=== PATIENT | male | born 1960 | race Caucasian/White ===

== ENCOUNTER → 2020-10-11 12:19 | Outpatient (CLI) | payer MEDICARE, SELFPAY ==
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
== END ==
DX: M19.011 Primary osteoarthritis, right shoulder (principal); M75.101 Unspecified rotator cuff tear or rupture of right shoulder, not specified as traumatic; G89.29 Other chronic pain
CPT/HCPCS: 73221

== ENCOUNTER 2021-03-14 11:03 | Emergency (ER) | payer MEDICARE, SELFPAY ==
[2021-03-14 11:04] VITALS: BP 164/91; PULSE 96; RESP 16; TEMP 36.6; BMI 22.8
[2021-03-14 13:46] VITALS: BP 140/87; PULSE 87; RESP 16; O2SAT 99
[2021-03-14] MEDS: Ondansetron ODT 4 MG Tablet PO (13:59)
[2021-03-14] MEDS: morphine 10 MG/ML Syringe 6 MG IM (13:59)
--- NOTE | 2021-03-14 15:05 | EDS_ITS ---
HPI History of Present Illness Chief Complaint: Cellulitis Narrative Narrative: 60-year-old male presenting with cellulitis on the left proximal forearm dorsal surface. He states this is been here for 3 months. He initially saw his primary care physician who is at [facility]. He states he was seen by resident initially and told it was fungal. He has been given topical antifungals for this since not improving. He denies any systemic signs or symptoms. He states he had a similar thing on the right elbow distantly and this resolved without any intervention. Patient states he has been able to express some pus from the lateral aspect of the proximal forearm. Denies his tory of MRSA. [facility] Medical History Diabetes Home Medications clindamycin HCl 450 mg PO TID 10 Days #90 cap 03/14/21 [Rx Last Taken Unknown] diclofenac sodium 75 mg PO BID 03/14/21 [History Last Taken Unknown] gabapentin 800 mg PO BID 03/14/21 [History Last Taken Unknown] metformin 1,000 mg PO BID 03/14/21 [History Last Taken Unknown] oxycodone-acetaminophen [Percocet] 1 tab PO Q6H PRN 3 Days tab 03/14/21 [Rx Last Taken Unknown] Allergy/AdvReac Type Severity Reaction Status Date / Time No Known Allergies Allergy Verified 03/14/21 11:07 Surgical History History of back surgery Social History Smoking Status: Light Smoker (<10/day) ROS [facility] ED Constitutional Constitutional ED: Denies chills or fever(s) Eyes Eyes: Denies blurry vision or change in vision ENT ENT ED: Denies rhinorrhea or sore throat Cardiovascular Cardiovascular: Denies chest pain or palpitations Respiratory/Chest Respiratory/Chest: Denies cough or dyspnea Gastrointestinal Gastrointestinal: Denies abdominal pain or nausea Genitourinary Genitourinary ED: Denies dysuria, hematuria or urinary frequency Musculoskeletal Musculoskeletal: Denies arthralgias or myalgias Integumentary Reports abscess and rash Neurologic Neurologic: Denies headache(s) or paresthesias EXAM Physical Exam Const Vital Signs: 03/14/21 11:04 03/14/21 13:46 Temperature 97.9 F Temperature Source Temporal Pulse Rate 96 87 Respiratory Rate 16 16 Blood Pressure 164/91 H 140/87 H Blood Pressure Mean 115 104 Pulse Ox 99 Positive well nourished General Appearance ED: NAD HEENT Reports moist mucous membranes Negative for trauma Eyes PERRL and EOMs intact bilaterally Resp normal respiratory effort and clear to auscultation bilaterally Cardio regular rate Extremity Extremity Narrative: Left proximal forearm has a 2 x 2 centimeter area of fluctuance with surrounding erythema proximally and medially. There is also induration here. No crepitance. Neuro oriented x3 Sensorium / Orientation: alert Psych mental status grossly normal MDM MDM MDM Narrative Medical decision making narrative: Patient presenting with abscess on the left proximal forearm. There is a 2 x 2 centimeter area of fluctuance. Patient is concerned that the abscess spans across the proximal dorsal forearm medially. When examining him he is pushing on the medial aspect of the forearm and pushing all the way until it starts to express when he gets to the area of fluctuance. Patient's wound was anesthetized with 6 cc of lidocaine with epinephrine to excise the whole volar area of the proximal forearm after the wound was cleaned with Shur-Clens. Incision and drainage was making a linear vertical fashion over the lateral aspect of the proximal forearm and this was deloculated and purulent discharge was drained. Patient is insistent that there is a tract from the medial aspect and for this reason I did 2 similar vertical incisions along this area concerning for tract in the forearm and there is no purulent discharge from these areas. Patient is counseled on soaking the forearm as well as being started on antibiotics for infection. He is counseled for new or worsening symptoms to return to the ED. Patient stable for discharge at this time. Impression: 1. Abscess 2. Cellulitis Discharge Plan Triage Chief Complaint: Cellulitis Other Complaint: Upper Extremity Injury ED Provider: Rickie Garcia Dx/Rx/DC Orders Clinical Impression: Abscess Prescriptions: New clindamycin HCl 150 mg capsule 450 mg PO TID 10 Days Qty: 90 RF: 0 oxycodone-acetaminophen [Percocet] 5-325 mg tablet 1 tab PO Q6H PRN (Reason: pain) 3 Days RF: 0 No Action gabapentin 800 mg Tablet 800 mg PO BID RF: 0 metformin 1,000 mg Tablet 1,000 mg PO BID RF: 0 diclofenac sodium 75 mg tablet,delayed release (DR/EC) 75 mg PO BID RF: 0 Primary Care Provider: Care Physician,No Primary Referrals: Care Physician,No Primary [Primary Care Provider] - Disposition Disposition: Home, Self Care
[2021-03-14] MEDS: oxyCODONE 5 MG Tablet PO (15:06)
[2021-03-14] MEDS: Clindamycin HCl 150 MG Capsule 450 MG PO (15:06)
[2021-03-14 15:19] VITALS: PULSE 86; RESP 16; O2SAT 97
[2021-03-14] MEDS: Lidocaine 1% /Epi 1:100 (20ml) 20 ML Vial INFILT (15:20)
== END 2021-03-14 15:21 | disposition home or self-care (01) ==
PROVIDERS: Emergency Provider Student in an Organized Health Care Education/Training Program
DX: L02.414 Cutaneous abscess of left upper limb (principal); L03.114 Cellulitis of left upper limb; F17.200 Nicotine dependence, unspecified, uncomplicated; E11.9 Type 2 diabetes mellitus without complications; Z79.84 Long term (current) use of oral hypoglycemic drugs; Z79.899 Other long term (current) drug therapy
CPT/HCPCS: 96372; 99284

== ENCOUNTER 2021-07-11 09:19 | Outpatient (CLI) | payer MEDICARE, SELFPAY ==
--- NOTE | 2021-07-11 09:30 | RAD_ITS ---
STUDY: X-RAY - ESOPHAGUS (BARIUM SWALLOW) WITH FLUOROSCOPY REASON FOR EXAM: Male, 61 years old. WEIGHT LOSS TECHNIQUE: 32 view(s) of the esophagus were obtained following swallowing of barium. FLUOROSCOPY TIME (if supplied): (36 seconds) minutes/seconds COMPARISON: None. FINDINGS: There is no demonstrated esophageal foreign body. There is no demonstrated stricture or mucosal abnormality. There is circumferential narrowing of the distal esophagus at the level of the gastroesophageal junction. The patient ingested a 12 mm tablet of barium. There is transient holdup of the tablet at that site although it eventually crosses over the gastroesophageal junction. Normal visualized aortic arch and descending thoracic aorta. Normal visualized pulmonary parenchyma. Normal visualized osseous structures of the thorax. RAD/Esophagus Single Contrast IMPRESSION: Diffuse circumferential narrowing of the distal portion of the esophagus at the gastroesophageal junction. There is transitory trapping of the 12 mm tablet of barium at the GE junction. Electronically Signed: Robbie Ortiz MD at 9:54 EST ,
== END 2021-07-11 23:59 | disposition short-term general hospital (02) ==
PROVIDERS: Referring Provider Internal Medicine Gastroenterology; Visit Provider Internal Medicine Gastroenterology
DX: R13.10 Dysphagia, unspecified (principal); R63.4 Abnormal weight loss
CPT/HCPCS: 74220

== ENCOUNTER 2021-08-11 12:03 | Outpatient (CLI) | payer MEDICARE, SELFPAY | END 2021-08-11 23:59 | disposition home or self-care (01) | LOC: PSN 12:04 | PROVIDERS: Referring Provider Internal Medicine Gastroenterology; Visit Provider Internal Medicine Gastroenterology | DX: Z20.822 Contact with and (suspected) exposure to COVID-19 (principal) | CPT/HCPCS: 87426; C9803 ==

== ENCOUNTER 2021-08-23 21:05 | Observation (INO) | payer MEDICARE, SELFPAY ==
[2021-08-23 21:05] VITALS: BP 155/106; PULSE 92; RESP 16; TEMP 36.1; O2SAT 98; BMI 25.7
--- NOTE | 2021-08-23 21:26 | EKG12_ITS ---
Test Reason : EDEMA Blood Pressure : / mmHG Vent. Rate : 087 BPM Atrial Rate : 087 BPM P-R Int : 166 ms QRS Dur : 146 ms QT Int : 394 ms P-R-T Axes : 063 -59 109 degrees QTc Int : 474 ms Normal sinus rhythm Left axis deviation Left bundle branch block Abnormal ECG Confirmed by TEDDY HENRY, ERICA ([id number]), society editor RACHELLE PADILLA ([id number]) on 08/25/2021 11:07:06 AM Referred By: Lidia Collins Confirmed By:ERICA ESPINAL MD
--- NOTE | 2021-08-23 21:40 | RAD_ITS ---
HISTORY: sob EXAMINATION/TECHNIQUE: XR Chest 2 Views: COMPARISON: None FINDINGS: LINES/DEVICES: None. LUNGS: No airspace consolidation. Unremarkable interstitium. No effusion. No pneumothorax. MEDIASTINUM: Mild cardiomegaly. Aortic atherosclersosis. MUSCULOSKELETAL: No acute osseous finding. RAD/Chest PA and Lateral IMPRESSION: No evidence of acute cardiopulmonary process. Borderline cardiomegaly without florid pulmonary edema. at 2204 Reported and signed by: Fabiano Portillo MD Electronically Signed: Fabiano Portillo MD at 22:02 EST ,
[2021-08-23 21:46] LABS: Absolute Lymphocyte Count 2.42 X10^3/uL (0.83-4.51); Absolute Neutrophil Count 4.4 X10^3/uL (2.0-7.7); Basophil# 0.02 X10^3/uL; Basophil% 0.3 % (0-1); Eosinophil# 0.09 X10^3/uL; Eosinophils% 1.2 % (0-5); Hemoglobin 16.1 g/dL (13.0-16.5); Lymphocyte # 2.42 X10^3/ul (0.83-4.51); Mean Corp Hgb Conc 34.3 g/dL (32-36); Mean Corpuscular Hgb 30.3 pg (27.0-32.0); Mean Corpuscular Volume 88.5 fL (80-94); Mean Platelet Vol. 10.6 fl (6.2-12.0); Monocyte% 7.9 % (0-10); NRBC Flagged by Analyzer 0 % (0-5); Neutrophil # 4.41 X10^3/uL (2.7-7.7); Neutrophil % 58.3 % (47-70); Platelet Count 160 K/mm3 (150-450); RBC Distribution Width CV 15.4 % (11.6-14.6); RBC Distribution Width SD 49.9 fl (35.1-43.9); Red Blood Count 5.31 M/mm3 (4.6-6.2); White Blood Count 7.6 K/mm3 (4.4-11.0)
--- NOTE | 2021-08-23 22:04 | EX.ED.DYSGE1 ---
HPI History of Present Illness Chief Complaint: Edema Informant: patient Onset/Context/Timing Onset: Weeks (1) Context: Gradual Onset Timing: Continuous Quality: swelling Location: BLE Current Severity: Mild Maximum Severity: Mild Worsened by: unk Relieved by: nothing Associated Symptoms Associated Symptoms: orthopnea Narrative Narrative: Patient has had swelling in both of his legs symmetrically without any pain and orthopnea for the past week. He states it has been since he had an EGD. He states that during the procedure she had some type of reaction to the anesthesia that they told him about when he woke up and were asking if he had had reaction to anesthesia in the past and he told him no. He is not sure about the details but he knows they had to put him on some oxygen. He was not sent home on it. He has had no chest discomfort or dyspnea with exertion. He has a mild chronic cough that he states is no worse than usual and nonproductive. No fevers or chills. No arm, jaw, neck discomfort that is unexplained. PFSH PFSH Medical History Diabetes Tobacco use Home Medications diclofenac sodium 75 mg PO BID 03/14/21 [History Last Taken Unknown] gabapentin 800 mg PO BID 03/14/21 [History Last Taken Unknown] metformin 1,000 mg PO BID 03/14/21 [History Last Taken Unknown] Allergy/AdvReac Type Severity Reaction Status Date / Time No Known Allergies Allergy Verified 08/23/21 21:06 Surgical History History of back surgery Social History Smoking Status: Light Smoker (<10/day) ROS ROS ED Constitutional Constitutional ED: Denies chills or fever(s) Eyes Eyes: Denies change in vision or diplopia ENT ENT ED: Denies rhinorrhea or sore throat Cardiovascular Cardiovascular: Reports orthopnea and pedal edema; Denies chest pain or palpitations Respiratory/Chest Respiratory/Chest: Reports cough and orthopnea; Denies dyspnea or excessive phlegm production Gastrointestinal Gastrointestinal: Denies abdominal pain, diarrhea, nausea or vomiting Genitourinary Genitourinary ED: Denies dysuria or hematuria Musculoskeletal Musculoskeletal: Denies back pain or neck pain Integumentary Denies abscess or rash Neurologic Neurologic: Denies headache(s), paresthesias or weakness Psychiatric Psychiatric: Denies anxiety or suicidal thoughts EXAM Physical Exam Const Vital Signs: 08/23/21 21:05 08/23/21 22:36 Temperature 97 F L 98.0 F Temperature Source Temporal Temporal Pulse Rate 92 83 Respiratory Rate 16 20 H Blood Pressure 155/106 H 152/99 H Blood Pressure Mean 122 116 Pulse Ox 98 96 Oxygen Delivery Method Room Air Room Air Positive well nourished and well developed General Appearance ED: well developed and NAD HEENT Reports moist mucous membranes normocephalic and atraumatic Eyes PERRL and EOMs intact bilaterally Neck full ROM, no lymphadenopathy, supple, no meningeal signs and thyroid normal Resp normal respiratory effort Resp Narrative: Few basilar rhonchi and wheezes bilaterally, no distress. Effort and Inspection: able to speak in complete sentences Cardio regular rate, regular rhythm and no murmurs GI non-tender and non-distended Auscultation: normoactive bowel sounds Palpation: soft Back/Spine no CVA tenderness General Back: other FROM Extremity normal to inspection Extremity Narrative: Patient states he is swollen compared with a normal up to the knees bilaterally, objectively I cannot appreciate any significant edema. None of it is pitting. Her compartments soft nondistended. Negative Homans bilaterally. Strong 2+/4 dorsalis pedis and radial pulses bilaterally and symmetric. General Extremety ED: Negative for edema, pulses abnormal or tenderness General Extremity: Negative for edema or pulses abnormal Neuro oriented x3, CN's II-XII intact bilaterally and no sensory deficits noted Sensorium / Orientation: awake and alert Motor Exam: strength 5/5 throughout Skin no rashes or lesions noted and no wounds MDM MDM MDM Narrative Medical decision making narrative: Patient's EKG shows a left bundle branch block. There is no old for comparison. There is no acute injury pattern and he is currently having no chest discomfort/angina. 2 view chest x-ray on my interpretation shows cardiomegaly and mild congestion. Radiology in agreement, stating no florid pulmonary edema. His BNP is elevated as well. The rest of his labs are unremarkable. He is clinically hemodynamically stable without hypoxemia. Therefore I spoke with Dr. Maxwell with cardiology. He advises admitting the patient for work-up even though the echocardiogram will happen the day after tomorrow since tomorrow is Wednesday, which I discussed with the patient and his , and he is agreeable to stay. Lab Data Attestation: I reviewed the patient's lab results. Labs: Laboratory Results - last 24 hr 08/23/21 08/23/21 08/23/21 21:40 21:40 21:40 WBC 7.6 RBC 5.31 Hgb 16.1 Hct 47.0 MCV 88.5 MCH 30.3 MCHC 34.3 RDW Std Deviation 49.9 H RDW Coeff of Chalino 15.4 H Plt Count 160 MPV 10.6 Immature Gran % (Auto) 0.300 Neut % (Auto) 58.3 Lymph % (Auto) 32.0 [place] % (Auto) 7.9 Eos % (Auto) 1.2 Baso % (Auto) 0.3 Absolute Neuts (auto) 4.4 Absolute Lymphs (auto) 2.42 Nucleated RBC % 0 Sodium 141 Potassium 4.7 Chloride 108 H Carbon Dioxide 31.0 Anion Gap 2 L BUN 13 Creatinine 0.86 Estim Creat Clear Calc 82.20 Est GFR (MDRD) Af Amer 116 Est GFR (MDRD) Non-Af 96 BUN/Creatinine Ratio 15.2 Glucose 94 Calcium 9.0 Troponin I High Sens 49 B-Natriuretic Peptide 1649.4 H Radiography Diagnostic Testing: Clinical Impression(s) from Imaging Studies Chest X-Ray 08/23/21 21:40 IMPRESSION: No evidence of acute cardiopulmonary process. Borderline cardiomegaly without florid pulmonary edema. at 2204 Reported and signed by: Fabiano Portillo MD Electronically Signed: Fabiano Portillo MD at 22:02 EST Reading Location ID and State: [facility] / [place] Tel , Service support , EKG Initial EKG: Attestation: I personally reviewed and interpreted this EKG as follows: Interpretation: Sinus Rhythm, No Acute Injury Pattern and LBBB Prior: No Prior Discharge Plan Dx/Rx/DC Orders Clinical Impression: New onset of congestive heart failure Disposition Disposition: Acute Care [facility]
[2021-08-23 22:09] LABS: BNP,B-Type NATRIURETIC PEPTIDE 1649.4 pg/mL (0-100)
[2021-08-23 22:18] LABS: Anion Gap 2 (5-15); BUN 13 mg/dL (7-18); BUN/Creat Ratio 15.2 RATIO (10-20); Chloride 108 mmol/L (98-107); Creatinine, Serum 0.86 mg/dL (0.70-1.30); EST Glomerular Filtration Rate 96 mL/min (>60); Est Glom Filt Rate - Afr Amer 116 mL/min (>60); Glucose 94 mg/dL (74-106); Potassium 4.7 mmol/L (3.5-5.1); Sodium Level 141 mmol/L (136-145); Troponin-I HS 49 pg/mL (3.0-78.0)
--- NOTE | 2021-08-23 22:26 | ED.RN ---
NO OLD EKGS
[2021-08-23 22:36] VITALS: BP 152/99; PULSE 83; RESP 20; TEMP 36.7; O2SAT 96
--- NOTE | 2021-08-23 22:40 | PCM.HP.STD ---
HPI - General General Date of Admission: 08/23/21 Date of Service: 08/23/21 Chief Complaint: BL LE edema HPI Narrative The patient is a 61 y/o M w/ PMHx: Diabetes mellitus type II with neuropathy, Tobacco use who presents to the [facility] ED on 08/23/21 with history of worsening BL LE edema progressively worsening over the last week with associated orthopnea with no sided chest discomfort or dyspnea or any issues with exertion with an unchanged mild chronic cough with no recent fevers or chills but given this extensive lower extremity swelling prompted ED evaluation. He notes that his symptoms seemed to start following a recent EGD. Work-up in the ED included T 97, heart rate 92, BP 155/106, respiratory rate 16, 98% on room air, CBC with WC 7.6, hemoglobin 16.1, platelet 160 without marked shift, BMP chloride 108 otherwise unremarkable, troponin 49, BNP 1649.4, chest x-ray with cardiomegaly with no evidence of overload, EKG with sinus rhythm with a left bundle branch block with no comparison available. ED discussed with Cardiology case who recommended given new presentation to admit and planned evaluation. In the ED patient administered lasix. [facility] Medical History Cannabis use disorder, mild, abuse Diabetes Tobacco use Home Medications diclofenac sodium 75 mg PO BID 03/14/21 [History Last Taken Unknown] gabapentin 800 mg PO BID 03/14/21 [History Last Taken Unknown] metformin 1,000 mg PO BID 03/14/21 [History Last Taken Unknown] Allergy/AdvReac Type Severity Reaction Status Date / Time No Known Allergies Allergy Verified 08/23/21 21:06 Family History (Updated 08/23/21 @ 23:[address] Lidia Collins MD) Father Diabetes Heart disease Hypertension other (Patient reports not knowing his mother or her family medical history.) Surgical History (Updated 08/23/21 @ 23:[address] Lidia Collins MD) History of back surgery S/P tonsillectomy and adenoidectomy Social History (Updated 08/23/21 @ 23:[address] Lidia Collins MD) household members: significant other Smoking Status: Current every day smoker tobacco type: cigars Smokeless tobacco user: other alcohol intake: current alcohol intake frequency: a few times a month substance use type: marijuana ROS ROS Narrative Admission Review of Systems: CONSTITUTIONAL: No weight loss, fever, chills, + weakness or fatigue. HEENT: Eyes: No visual loss, blurred vision, double vision or yellow sclerae. Ears, Nose, Throat: No hearing loss, sneezing, congestion, runny nose or sore throat. SKIN: No rash or itching, lesions, wounds. CARDIOVASCULAR: + Edema, orthopnea. No chest pain, chest pressure or chest discomfort, palpitations, syncopal events. RESPIRATORY: No shortness of breath, cough or sputum, wheezing, hemoptysis. GASTROINTESTINAL: No anorexia, nausea, vomiting or diarrhea, abdominal pain, melena, BRBPR. GENITOURINARY: No dysuria, frequency, urgency or retention. NEUROLOGICAL: No headache, dizziness, syncope, paralysis, ataxia, numbness or tingling in the extremities, focal weakness, change in bowel or bladder control, seizure. MUSCULOSKELETAL: + muscle, back pain, joint pain or stiffness. HEMATOLOGIC: No anemia, bleeding or bruising. LYMPHATICS: No enlarged nodes. No history of splenectomy. PSYCHIATRIC: No history of depression or anxiety. ENDOCRINOLOGIC: No reports of sweating, cold or heat intolerance. No polyuria or polydipsia. ALLERGIES: No history of asthma, hives, eczema or rhinitis. Vital Signs Vital Signs Vital Signs: 08/23/21 21:05 08/23/21 22:36 Temperature 97 F L 98.0 F Temperature Source Temporal Temporal Pulse Rate 92 83 Respiratory Rate 16 20 H Blood Pressure 155/106 H 152/99 H Blood Pressure Mean 122 116 Pulse Ox 98 96 Oxygen Delivery Method Room Air Room Air Weight Weight: 164 lb 10.965 oz Body Mass Index (BMI) 25.7 Physical Exam Narrative Physical Examination: General: Awake, alert, oriented x 3 and cooperative, seated upright in the ED bed in no apparent distress, very reticent to stay and notes several concerns about taking any medications including aspirin. Skin: Normal color, normal turgor, no icterus, no cyanosis. HEENT: AT/NC, EOMI, PERRLA, MMM, no carotid bruits or JVD noted. Lungs: Diminished, greater bases, moderate effort, no rales, ronchi or wheezing. Heart: Currently regular rate and rhythm; no gallop, rub audible. Abdomen: Soft, NTTP, ND, normal BS, no HSM. Extremities: No cyanosis, clubbing, or currently marked edema. He notes that earlier in the morning they were significantly swollen to the point he could not bend his toes but this is currently resolved. Neurological: Patient awake, alert, oriented x 3, cognitive function intact; pupils equally reactive to light and accommodation, cranial nerves II-XII grossly normal, moving all 4 extremities, no focal deficits, strength mildly globally creased. Psychiatric: Affect appears irritable, no acute evidence of depressive or anxiety feelings. Results Lab / Micro Data Result Diagrams: 08/23/21 21:40 08/23/21 21:40 Labs: Laboratory Results - last 24 hr 08/23/21 21:40: WBC 7.6, RBC 5.31, Hgb 16.1, Hct 47.0, MCV 88.5, MCH 30.3, MCHC 34.3, RDW Std Deviation 49.9 H, RDW Coeff of Chalino 15.4 H, Plt Count 160, MPV 10.6, Immature Gran % (Auto) 0.300, Neut % (Auto) 58.3, Lymph % (Auto) 32.0, [place] % (Auto) 7.9, Eos % (Auto) 1.2, Baso % (Auto) 0.3, Absolute Neuts (auto) 4.4, Absolute Lymphs (auto) 2.42, Nucleated RBC % 0 08/23/21 21:40: Sodium 141, Potassium 4.7, Chloride 108 H, Carbon Dioxide 31.0, Anion Gap 2 L, BUN 13, Creatinine 0.86, Estim Creat Clear Calc 82.20, Est GFR (MDRD) Af Amer 116, Est GFR (MDRD) Non-Af 96, BUN/Creatinine Ratio 15.2, Glucose 94, Calcium 9.0, Troponin I High Sens 49 08/23/21 21:40: B-Natriuretic Peptide 1649.4 H Radiology Impression Chest X-Ray 08/23/21 21:40 IMPRESSION: No evidence of acute cardiopulmonary process. Borderline cardiomegaly without florid pulmonary edema. at 2204 Reported and signed by: Fabiano Portillo MD Electronically Signed: Fabiano Portillo MD at 22:02 EST Reading Location ID and State: [facility] / [place] Tel , Service support , Assessment & Plan Assessment/Plan (1) New onset of congestive heart failure: (2) Elevated BP without diagnosis of hypertension: PLAN: The patient is a 61 y/o M w/ PMHx: Diabetes mellitus type II with neuropathy, Tobacco use who presents to the [facility] ED on 08/23/21 with history of worsening BL LE edema progressively worsening over the last week with associated orthopnea with no sided chest discomfort or dyspnea or any issues with exertion with an unchanged mild chronic cough with no recent fevers or chills but given this extensive lower extremity swelling prompted ED evaluation. #1. Acute Decompensated CHF, unclear type: Patient administered IV lasix in the ED, will admit to PCU, maintain on cardiac telemetry, obtain cardiac enzyme series, obtain serial EKGs, continue IV lasix diuresis, monitor I/Os, continue medical therapy w/ asa, add statin, add BB, IV Lasix as noted. Will obtain TSH and magnesium level. Will obtain echocardiogram. Will place neck Patricio wraps. Cardiology consulted per ED and noted plan to evaluation patient in AM. #2. Elevated BP without hypertensive diagnosis: Given presentation initiate on low-dose beta-christiano and will maintain on IV Lasix, adjust treatments as needed, as needed IV hydralazine. #3. Diabetes mellitus type II with chronic neuropathy: Hold oral home regimen, continue home gabapentin regimen, ADA diet, accu checks w/ ISS. #4. Tobacco Abuse: Encouraged cessation, inpatient consultation per RT, NR if desired. #5. DVT prophylaxis: SCDs, Lovenox. Charges/Coding Visit Charges OBSV E&M: 54641 Initial observation care L3
[2021-08-23 23:05] LABS: Magnesium 1.4 mg/dL (1.6-2.6)
[2021-08-23 23:17] VITALS: BMI 25.7
[2021-08-23 23:20] VITALS: BP 179/113; PULSE 91; RESP 18; TEMP 36.5; O2SAT 97
[2021-08-23 23:51] VITALS: PULSE 94
[2021-08-24] VITALS (9 sets, daily range): BP systolic 148–162; BP diastolic 86–103; PULSE 77–92; RESP 16–18; TEMP 36.1–36.6; O2SAT 95–100
[2021-08-24] MEDS: Acetaminophen 325 MG Tablet 650 MG PO ×2 (00:06→21:27)
[2021-08-24] MEDS: Gabapentin 800 MG Tablet PO ×3 (00:06→21:24)
[2021-08-24] MEDS: Carvedilol 6.25 MG Tablet PO ×2 (00:06→09:11)
[2021-08-24] MEDS: Diclofenac 75 MG Tablet PO ×3 (00:07→21:24)
[2021-08-24 00:26] LABS: Bedside Glucose 141 mg/dL (74-106)
[2021-08-24 00:37] LABS: Troponin-I HS 53 pg/mL (3.0-78.0)
[2021-08-24] MEDS: 0.9% Saline Lock 10 ML Syringe IV ×5 (03:50→23:10)
[2021-08-24 05:07] LABS: Absolute Lymphocyte Count 1.91 X10^3/uL (0.83-4.51); Absolute Neutrophil Count 6.7 X10^3/uL (2.0-7.7); Basophil# 0.02 X10^3/uL; Basophil% 0.2 % (0-1); Eosinophils% 1.1 % (0-5); Hematocrit 48.8 % (40-54); Hemoglobin 16.1 g/dL (13.0-16.5); Lymphocyte # 1.91 X10^3/ul (0.83-4.51); Lymphocyte % 20.3 % (19-41); Mean Corpuscular Hgb 29.7 pg (27.0-32.0); Mean Platelet Vol. 10.9 fl (6.2-12.0); Monocyte# 0.65 X10^3/uL; Monocyte% 6.9 % (0-10); NRBC Flagged by Analyzer 0 % (0-5); Neutrophil # 6.72 X10^3/uL (2.7-7.7); Neutrophil % 71.3 % (47-70); Platelet Count 157 K/mm3 (150-450); RBC Distribution Width CV 15.4 % (11.6-14.6); RBC Distribution Width SD 50.6 fl (35.1-43.9); Red Blood Count 5.42 M/mm3 (4.6-6.2); White Blood Count 9.4 K/mm3 (4.4-11.0)
[2021-08-24 05:26] LABS: Troponin-I HS 45 pg/mL (3.0-78.0)
[2021-08-24 05:45] LABS: ALB/GLOB Ratio 1.1 RATIO (0.9-2.4); AST(SGOT) 44 U/L (15-37); Alanine Aminotransfer ALT/SGPT 56 U/L (16-61); Albumin, Serum 3.7 g/dL (3.2-5.0); Alkaline Phosphatase 67 U/L (45-117); Anion Gap 5 (5-15); BUN 13 mg/dL (7-18); BUN/Creat Ratio 17.8 RATIO (10-20); Calcium,Total 8.9 mg/dL (8.5-10.1); Chloride 107 mmol/L (98-107); Cholesterol 121 mg/dL (200); Creatinine, Serum 0.73 mg/dL (0.70-1.30); EST Glomerular Filtration Rate 115 mL/min (>60); Est Glom Filt Rate - Afr Amer 139 mL/min (>60); Estimated Creatinine Clearance 96.84 ml/min; Globulin 3.4 g/dL (2.2-4.2); Glucose 151 mg/dL (74-106); High Density Lipoprotein 35 mg/dL; Magnesium 2.2 mg/dL (1.6-2.6); Protein, Total 7.1 g/dL (6.4-8.2); Sodium Level 139 mmol/L (136-145); Thyroid Stim Hormone (TSH) 3.81 uIU/mL (0.358-3.74); Triglycerides 85 mg/dL; Very Low Density Lipoprotein 17 mg/dL (5-40)
--- NOTE | 2021-08-24 05:55 | ECHOD_ITS ---
Reason For Study: CHF Procedure This was a 2D Doppler, Color Flow transthoracic echocardiogram. Exam performed portable in patient room. Left Ventricle Moderately dilated left ventricle. The estimated ejection fraction is 15 %. There is severe global hypokinesis of the left ventricle. Right Ventricle Normal RV size. Normal systolic function. Atria The left atrium is mildly enlarged. Normal right atrium. Mitral Valve Normal mitral valve. Mild (1+) eccentric mitral valve insufficiency. Tricuspid Valve Normal tricuspid valve. Mild to moderate (1-2+) tricuspid valve insufficiency. Pulmonary artery systolic pressure is 45 mmHg. Aortic Valve Normal aortic valve. Trisinus/trileaflet aortic valve. Pulmonic Valve Normal pulmonic valve. Great Vessels Normal aortic root. The pulmonary artery is normal size. Inferior vena cava collapse with respiration. Pericardium/Pleural Small pericardial effusion. There are no echocardiographic indications of cardiac tamponade. MMode/2D Measurements & Calculations LVIDd: 6.6 cm IVSd: 1.0 cm Ao root diam: 3.0 cm LVIDs: 6.2 cm LVPWd: 1.7 cm RVDd: 4.1 cm FS: 6.3 % LAV(MOD-bp): 64.5 ml LVAd ap4: 54.0 cm2 SV(MOD-sp4): 48.8 ml LAV(MOD-bp) Indexed: 35.1 ml/m2 LVLd ap4: 9.4 cm LAV(MOD-sp2): 62.5 ml EDV(MOD-sp4): 257.2 ml LAV(MOD-sp4): 65.4 ml EDV(sp4-el): 263.4 ml LVAs ap4: 48.7 cm2 LVLs ap4: 9.7 cm ESV(MOD-sp4): 208.4 ml ESV(sp4-el): 208.6 ml EF(MOD-sp4): 19.0 % EF(sp4-el): 20.8 % SV(sp4-el): 54.8 ml LA A4 area: 21.5 cm2 LA dimension(2D): 4.3 cm RA A4 area: 17.5 cm2 Time Measurements MV dec time: 0.15 sec Doppler Measurements & Calculations MV E max candido: 70.4 cm/sec Lat Peak E' Candido: 4.6 cm/sec Med Peak E' Candido: 3.2 cm/sec MV A max candido: 47.1 cm/sec E/E' lat: 15.3 E/E' med: 21.8 MV E/A: 1.5 Ao V2 max: 150.6 cm/sec LV V1 max: 52.0 cm/sec PA V2 max: 78.1 cm/sec Ao max P.1 mmHg LV V1 max P.1 mmHg TR max candido: 323.8 cm/sec TR max P.9 mmHg ECHO/Echo Complete Interpretation Summary Moderately dilated left ventricle. The estimated ejection fraction is 15 %. There is severe global hypokinesis of the left ventricle. Mild (1+) eccentric mitral valve insufficiency. Pulmonary artery systolic pressure is 45 mmHg. Small pericardial effusion. There are no echocardiographic indications of cardiac tamponade. Ordering Physician: Lidia Collins Referring Physician: Lidia Collins Performed By: Kayla Talamantes RDCS
[2021-08-24 07:01] LABS: Bedside Glucose 151 mg/dL (74-106)
--- NOTE | 2021-08-24 09:09 | PCM.PN.HOSP ---
Documented by User: Violeta Bull WOODWORKING MACHINE OPERATOR, WOODWORKING MACHINE OPERATOR-C 08/24/21 09:16 Subjective Subjective Patient seen and examined. Reports improvement in breathing and lower extremity swelling. Persistently complains about not being able to sleep in hospital bed. Denies other symptoms or complaints Objective Data Objective Data Vital Signs: Vital Signs Temp Pulse Resp BP Pulse Ox 97.1 F L 81 18 149/103 H 100 08/24/21 09:07 08/24/21 09:07 08/24/21 09:07 08/24/21 09:07 08/24/21 09:07 Oxygen Delivery Method Room Air Weight: 164 lb 3.91 oz Body Mass Index (BMI) 25.7 Intake & Output: Intake and Output for Last 24 Hours 08/22/21 08/23/21 08/25/21 23:59 23:59 00:59 Intake Total 104 / 104 Balance 104 / 104 Lab / Micro Data Result Diagrams: 08/24/21 04:49 08/24/21 04:49 Labs: Laboratory Results - last 24 hr 08/23/21 21:40: WBC 7.6, RBC 5.31, Hgb 16.1, Hct 47.0, MCV 88.5, MCH 30.3, MCHC 34.3, RDW Std Deviation 49.9 H, RDW Coeff of Chalino 15.4 H, Plt Count 160, MPV 10.6, Immature Gran % (Auto) 0.300, Neut % (Auto) 58.3, Lymph % (Auto) 32.0, [place] % (Auto) 7.9, Eos % (Auto) 1.2, Baso % (Auto) 0.3, Absolute Neuts (auto) 4.4, Absolute Lymphs (auto) 2.42, Nucleated RBC % 0 08/23/21 21:40: Sodium 141, Potassium 4.7, Chloride 108 H, Carbon Dioxide 31.0, Anion Gap 2 L, BUN 13, Creatinine 0.86, Estim Creat Clear Calc 82.20, Est GFR (MDRD) Af Amer 116, Est GFR (MDRD) Non-Af 96, BUN/Creatinine Ratio 15.2, Glucose 94, Calcium 9.0, Troponin I High Sens 49 08/23/21 21:40: B-Natriuretic Peptide 1649.4 H 08/23/21 21:40: Magnesium 1.4 L 08/23/21 23:54: Troponin I High Sens 53 08/24/21 00:10: POC Glucose 141 H 08/24/21 04:49: WBC 9.4, RBC 5.42, Hgb 16.1, Hct 48.8, MCV 90.0, MCH 29.7, MCHC 33.0, RDW Std Deviation 50.6 H, RDW Coeff of [place] 15.4 H, Plt Count 157, MPV 10.9, Immature Gran % (Auto) 0.200, Neut % (Auto) 71.3 H, Lymph % (Auto) 20.3, [place] % (Auto) 6.9, Eos % (Auto) 1.1, Baso % (Auto) 0.2, Absolute Neuts (auto) 6.7, Absolute Lymphs (auto) 1.91, Nucleated RBC % 0 08/24/21 04:49: Sodium 139, Potassium 4.0, Chloride 107, Carbon Dioxide 27.0, Anion Gap 5, BUN 13, Creatinine 0.73, Estim Creat Clear Calc 96.84, Est GFR (MDRD) Af Amer 139, Est GFR (MDRD) Non-Af 115, BUN/Creatinine Ratio 17.8, Glucose 151 H, Calcium 8.9, Magnesium 2.2, Total Bilirubin 0.60, AST 44 H, ALT 56, Alkaline Phosphatase 67, Total Protein 7.1, Albumin 3.7, Globulin 3.4, Albumin/Globulin Ratio 1.1, Triglycerides 85, Cholesterol 121, LDL Cholesterol 69, VLDL Cholesterol 17, HDL Cholesterol 35 L, TSH 3.81 H 08/24/21 04:49: Troponin I High Sens 45 08/24/21 06:30: POC Glucose 151 H Radiography Diagnostic Testing: Radiology Impression Chest X-Ray 08/23/21 21:40 IMPRESSION: No evidence of acute cardiopulmonary process. Borderline cardiomegaly without florid pulmonary edema. at 2204 Reported and signed by: Fabiano Portillo MD Electronically Signed: Fabiano Portillo MD at 22:02 EST Reading Location ID and State: [facility] / [place] Tel , Service support , Physical Exam Const alert, oriented x3 and no apparent distress Orientation / Consciousness: awake, oriented to person, oriented to place and oriented to time HEENT normocephalic and moist oral mucous membranes Eyes PERRL, EOMs intact bilaterally and conjunctivae normal Neck no lymphadenopathy Resp Auscultation: crackles and diminished lung sounds Cardio regular rate, regular rhythm and no murmurs Peripheral Pulses: pulses 2+ throughout GI normal to inspection, nondistended, normoactive bowel sounds, non-tender and non-distended Extremity normal to inspection General Extremity: edema bilateral lower extremity Details: mild Skin no rashes or lesions noted Lesions: no lesions Rashes: no rashes Trauma: no lacerations or abrasions Neuro CN's II-XII intact bilaterally, no focal motor deficits, no sensory deficits noted and deep tendon reflexes 2+ bilaterally Psych mental status grossly normal Mood & Affect: irritable Assessment & Plan Assessment/Plan (1) New onset of congestive heart failure: (2) Elevated BP without diagnosis of hypertension: PLAN: 1. Acute CHF, unclear type- BNP 1649. CXR unremarkable. IV Lasix. Strict I&O. Daily weight. Troponin negative. Echo pending. Cardiology consulted. 2. Elevated blood pressure without known history of hypertension-initiated on carvedilol. As needed hydralazine. 3. 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 Accu-Cheks with sliding scale insulin. Hemoglobin A1c pending. 4. Tobacco dependence-encouraged cessation. DVT prophylaxis-Lovenox This patient was seen by NEISHA Linares under the supervision of Dr. Whitehead. Documented by User: Dr. Ayo Whitehead MD 08/24/21 10:04 Objective Data Lab / Micro Data Result Diagrams: 08/24/21 04:49 08/24/21 04:49 Assessment & Plan Addt'l Comments This patient was seen in conjunction with NEISHA Linares . I have independently interviewed and examined the patient and reviewed pertinent historical, laboratory, and other data. Please refer to NEISHA Linares note for details of this patient's presentation, findings, and recommendations. I have reviewed NEISHA Linares note and concur with documented findings. In brief, patient is a 61-year-old gentleman admitted with progressive shortness of breath and bipedal edema and assessment of new onset congestive heart failure made admitted to a monitored bed where patient is currently being managed Physical Examination: GENERAL: cooperative HEENT: Atraumatic; EYES; Anicteric, Normal Conjunctiva NECK; supple, normal thyroid, RESPIRATORY: Diminished to auscultation CARDIOVASCULAR: Regular S1 S2, GI: soft, normoactive bowel sounds, : No Renal angle tenderness; EXTREMITIES: Trace bipedal edema, no clubbing, MUSCULOSKELETAL: no muscle wasting NEURO: Awake; no lateralizing signs. SKIN: No Rash PSYCH; Flat affect Assessment: 1. Acute congestive heart failure unspecified at this point 2. Essential hypertension 3. Diabetes mellitus type 2 4. Tobacco dependence 5. Chronic back pain with previous laminectomies 6. DVT prophylaxis Recommendations: 1. I have discussed the results of my overview and impressions with the patient 2. Options for management were reviewed Total time spent by myself and the advanced practice practitioner evaluating patient, reviewing labs, subsequent management decisions, discussion with patient as well as other providers 45 minutes ( 25 of which was spent by myself) Charges/Coding Visit Charges Inpatient E&M: 54281 Disch Hosp
[2021-08-24] MEDS: Aspirin 81 MG TAB.CHEW PO (09:10)
[2021-08-24] MEDS: Furosemide 40 MG/4 ML Vial IV ×2 (09:11→17:08)
[2021-08-24] MEDS: Enoxaparin 40 MG/0.4 ML Syringe SC (09:12)
[2021-08-24 09:13] LABS: Hemoglobin A1c 6.7 % (3.8-5.6)
[2021-08-24] MEDS: Insulin Lispro 100 UNIT/ML INSULN.PEN SC ×2 (11:24→21:24)
[2021-08-24 11:26] LABS: Bedside Glucose 219 mg/dL (74-106)
--- NOTE | 2021-08-24 11:37 | PCM.CONS.C ---
Assessment & Plan Assessment/Plan (1) Elevated BP without diagnosis of hypertension: (2) New onset of congestive heart failure: PLAN: 61-year-old patient with history of diabetes mellitus, hypertension tobacco use Presented with worsening bilateral lower extremity edema which has been progressively worsening over the last week associated with orthopnea patient denied any symptoms of chest pain. Also history of cannabis use. Patient has been feeling better today Cardiac care plan recommendations; 1. Patient presenting with new onset decompensated congestive heart failure 2. Continue current medical treatment and will start on CHF protocol 3. Echocardiographic evaluation and Lexiscan sestamibi for tomorrow 4. We will follow up with the cardiology team. HPI Consult Data Date of Consult: 09/05/21 HPI Narrative Reason for Consultation: Use of breath, bilateral lower extremity edema/CHF HPI Narrative: MAR NARAYANAN, is a 61 M who presents [facility] Medical History Acute HFrEF (heart failure with reduced ejection fraction) Cannabis use disorder, mild, abuse Diabetes Elevated BP without diagnosis of hypertension (08/23/21) Non-ischemic cardiomyopathy Nonobstructive atherosclerosis of coronary artery Tobacco use Home Medications diclofenac sodium 75 mg PO BID 03/14/21 [History Last Taken Unknown] gabapentin 800 mg PO BID 03/14/21 [History Last Taken Unknown] metformin 1,000 mg PO BID 03/14/21 [History Last Taken Unknown] aspirin 81 mg PO BREAKFAST 30 Days #30 tab 08/25/21 [Rx Last Taken Unknown] atorvastatin 10 mg PO QHS #30 tab 08/25/21 [Rx Last Taken Unknown] carvedilol 12.5 mg PO BID 30 Days #60 tab 08/25/21 [Rx Last Taken Unknown] furosemide 40 mg PO BIDLX 30 Days #60 tab 08/25/21 [Rx Last Taken Unknown] lisinopril 5 mg PO DAILY 30 Days #30 tab 08/25/21 [Rx Last Taken Unknown] nicotine [Nicoderm CQ] 1 patch TRANSDERMAL DAILY #7 ea 08/25/21 [Rx Last Taken Unknown] Allergy/AdvReac Type Severity Reaction Status Date / Time No Known Allergies Allergy Verified 08/23/21 23:24 Family History (Updated 08/23/21 @ 23:[address] Lidia Collins MD) Father Diabetes Heart disease Hypertension Family History other Surgical History (Updated 08/25/21 @ 17:13 by Vicky Handy) History of back surgery History of left heart catheterization (08/25/21) History of tonsillectomy and adenoidectomy Social History (Updated 08/23/21 @ 23:[address] Lidia Collins MD) household members: significant other Smoking Status: Current every day smoker tobacco type: cigars Smokeless tobacco user: other alcohol intake: current alcohol intake frequency: a few times a month substance use type: marijuana Physical Exam Narrative Patient seen and evaluated today at bedside along with the nursing staff at bedside Alert and orientated x3 Sitting out in a chair Symptoms of shortness of breath and lower extremity swelling improving Review of cardiac telemetry underlying rhythm is normal sinus Cardiac exam; S1-S2 regular, no systolic or diastolic murmur. No pericardial rub Chest examination; minimal bilateral basilar rales. Examination of extremity; +1 lower extremity edema Central nervous system exam no focal neurological deficit Risk Stratification Risk Stratification Applicable: No Objective Data Vital Signs: Vital Signs Temp Pulse Resp BP Pulse Ox 97.1 F L 81 18 149/103 H 100 08/24/21 09:07 08/24/21 09:07 08/24/21 09:07 08/24/21 09:07 08/24/21 09:07 Oxygen Delivery Method Room Air Weight: 164 lb 3.91 oz Body Mass Index (BMI) 25.7 Intake & Output: Intake and Output for Last 24 Hours 08/22/21 08/23/21 08/25/21 23:59 23:59 00:59 Intake Total 654 / 654 Output Total 300 / 300 Balance 354 / 354 Lab / Micro Data Result Diagrams: 08/24/21 04:49 08/24/21 04:49 Labs: Laboratory Results - last 24 hr 08/23/21 21:40: WBC 7.6, RBC 5.31, Hgb 16.1, Hct 47.0, MCV 88.5, MCH 30.3, MCHC 34.3, RDW Std Deviation 49.9 H, RDW Coeff of Chalino 15.4 H, Plt Count 160, MPV 10.6, Immature Gran % (Auto) 0.300, Neut % (Auto) 58.3, Lymph % (Auto) 32.0, [place] % (Auto) 7.9, Eos % (Auto) 1.2, Baso % (Auto) 0.3, Absolute Neuts (auto) 4.4, Absolute Lymphs (auto) 2.42, Nucleated RBC % 0 08/23/21 21:40: Sodium 141, Potassium 4.7, Chloride 108 H, Carbon Dioxide 31.0, Anion Gap 2 L, BUN 13, Creatinine 0.86, Estim Creat Clear Calc 82.20, Est GFR (MDRD) Af Amer 116, Est GFR (MDRD) Non-Af 96, BUN/Creatinine Ratio 15.2, Glucose 94, Calcium 9.0, Troponin I High Sens 49 08/23/21 21:40: B-Natriuretic Peptide 1649.4 H 08/23/21 21:40: Magnesium 1.4 L 08/23/21 23:54: Troponin I High Sens 53 08/24/21 00:10: POC Glucose 141 H 08/24/21 04:49: WBC 9.4, RBC 5.42, Hgb 16.1, Hct 48.8, MCV 90.0, MCH 29.7, MCHC 33.0, RDW Std Deviation 50.6 H, RDW Coeff of Chalino 15.4 H, Plt Count 157, MPV 10.9, Immature Gran % (Auto) 0.200, Neut % (Auto) 71.3 H, Lymph % (Auto) 20.3, [place] % (Auto) 6.9, Eos % (Auto) 1.1, Baso % (Auto) 0.2, Absolute Neuts (auto) 6.7, Absolute Lymphs (auto) 1.91, Nucleated RBC % 0 08/24/21 04:49: Sodium 139, Potassium 4.0, Chloride 107, Carbon Dioxide 27.0, Anion Gap 5, BUN 13, Creatinine 0.73, Estim Creat Clear Calc 96.84, Est GFR (MDRD) Af Amer 139, Est GFR (MDRD) Non-Af 115, BUN/Creatinine Ratio 17.8, Glucose 151 H, Calcium 8.9, Magnesium 2.2, Total Bilirubin 0.60, AST 44 H, ALT 56, Alkaline Phosphatase 67, Total Protein 7.1, Albumin 3.7, Globulin 3.4, Albumin/Globulin Ratio 1.1, Triglycerides 85, Cholesterol 121, LDL Cholesterol 69, VLDL Cholesterol 17, HDL Cholesterol 35 L, TSH 3.81 H 08/24/21 04:49: Troponin I High Sens 45 08/24/21 04:49: Hemoglobin A1c 6.7 H 08/24/21 06:30: POC Glucose 151 H 08/24/21 11:20: POC Glucose 219 H Cardiology Labs/Tests 08/23/21 21:40: WBC 7.6, RBC 5.31, Hgb 16.1, Hct 47.0, MCV 88.5, MCH 30.3, MCHC 34.3, Plt Count 160, MPV 10.6, Immature Gran % (Auto) 0.300, Neut % (Auto) 58.3, Lymph % (Auto) 32.0, [place] % (Auto) 7.9, Eos % (Auto) 1.2, Baso % (Auto) 0.3, Absolute Neuts (auto) 4.4, Nucleated RBC % 0 08/23/21 21:40: Sodium 141, Potassium 4.7, Chloride 108 H, Carbon Dioxide 31.0, Anion Gap 2 L, BUN 13, Creatinine 0.86, Est GFR (MDRD) Af Amer 116, Est GFR (MDRD) Non-Af 96, BUN/Creatinine Ratio 15.2, Glucose 94, Calcium 9.0 08/23/21 21:40: B-Natriuretic Peptide 1649.4 H 08/23/21 21:40: Magnesium 1.4 L 08/24/21 04:49: WBC 9.4, RBC 5.42, Hgb 16.1, Hct 48.8, MCV 90.0, MCH 29.7, MCHC 33.0, Plt Count 157, MPV 10.9, Immature Gran % (Auto) 0.200, Neut % (Auto) 71.3 H, Lymph % (Auto) 20.3, [place] % (Auto) 6.9, Eos % (Auto) 1.1, Baso % (Auto) 0.2, Absolute Neuts (auto) 6.7, Nucleated RBC % 0 08/24/21 04:49: Sodium 139, Potassium 4.0, Chloride 107, Carbon Dioxide 27.0, Anion Gap 5, BUN 13, Creatinine 0.73, Est GFR (MDRD) Af Amer 139, Est GFR (MDRD) Non-Af 115, BUN/Creatinine Ratio 17.8, Glucose 151 H, Calcium 8.9, Magnesium 2.2, Total Bilirubin 0.60, Triglycerides 85, Cholesterol 121, LDL Cholesterol 69, VLDL Cholesterol 17, HDL Cholesterol 35 L 08/24/21 04:49: Hemoglobin A1c 6.7 H Rhythm: EKG: ECHO: Stress Test: Cardiac Cath: PCI: CT Surgery: Holter monitor: EPS: PPM: CXR: Chest CT Scan: Radiography Diagnostic Testing: Radiology Impression Chest X-Ray 08/23/21 21:40 IMPRESSION: No evidence of acute cardiopulmonary process. Borderline cardiomegaly without florid pulmonary edema. at 2204 Reported and signed by: Fabiano Portillo MD Electronically Signed: Fabiano Portillo MD at 22:02 EST ,
[2021-08-24 16:10] LABS: Bedside Glucose 141 mg/dL (74-106)
[2021-08-24] MEDS: Ondansetron 4 MG/2 ML Vial IV (20:09)
--- NOTE | 2021-08-24 20:21 | NURSING ---
Zofran vial placed in sharps container before scanned properly. Given and verified with MONICA Santos.
[2021-08-24] MEDS: Carvedilol 12.5 MG Tablet PO (21:24)
[2021-08-24] MEDS: Atorvastatin Calcium 40 MG Tablet PO (21:24)
[2021-08-24 22:01] LABS: Bedside Glucose 161 mg/dL (74-106)
[2021-08-24] MEDS: proCHLORPERazine 10 MG/2 ML Vial 5 MG IV (23:09)
[2021-08-25] VITALS (14 sets, daily range): BP systolic 122–144; BP diastolic 78–92; PULSE 68–82; RESP 16–18; TEMP 36.4–36.7; O2SAT 91–97
--- NOTE | 2021-08-25 05:55 | EKG12_ITS ---
Test Reason : STRESS TEST Blood Pressure : / mmHG Vent. Rate : 080 BPM Atrial Rate : 080 BPM P-R Int : 164 ms QRS Dur : 154 ms QT Int : 432 ms P-R-T Axes : 054 -67 100 degrees QTc Int : 498 ms Normal sinus rhythm Left axis deviation Left bundle branch block Abnormal ECG Confirmed by COSMO HENRY, TEDDY ([id number]), copy editor RACHELLE PADILLA ([id number]) on 08/28/2021 10:16:02 AM Referred By: Lidia Collins Confirmed By:TEDDY WILBURN MD
[2021-08-25] MEDS: Aspirin 81 MG TAB.CHEW PO (06:32)
[2021-08-25 06:41] LABS: Bedside Glucose 127 mg/dL (74-106)
--- NOTE | 2021-08-25 08:00 | PN.CARD_ITS ---
Subjective Subjective Patient seen and evaluated. Lying in bed appears to be quite stable at this particular time. Objective Data Vital Signs: Vital Signs Temp Pulse Resp BP Pulse Ox 97.5 F L 70 16 122/78 H 96 08/25/21 06:14 08/25/21 06:47 08/25/21 06:14 08/25/21 06:14 08/25/21 06:59 Oxygen Delivery Method Room Air Weight: 151 lb 9.6 oz Body Mass Index (BMI) 25.7 Intake & Output: Intake and Output for Last 24 Hours 08/23/21 08/24/21 08/25/21 22:59 23:59 23:59 Intake Total Output Total Balance Lab / Micro Data Result Diagrams: 08/24/21 04:49 08/24/21 04:49 Labs: Laboratory Results - last 24 hr 08/24/21 04:49: Hemoglobin A1c 6.7 H 08/24/21 11:20: POC Glucose 219 H 08/24/21 16:07: POC Glucose 141 H 08/24/21 21:21: POC Glucose 161 H 08/25/21 06:31: POC Glucose 127 H Cardiology Labs/Tests 08/24/21 04:49: Hemoglobin A1c 6.7 H Rhythm: EKG: ECHO: Stress Test: Cardiac Cath: PCI: CT Surgery: Holter monitor: EPS: PPM: CXR: Chest CT Scan: Physical Exam Const alert, oriented x3 and no apparent distress General Appearance: cooperative HEENT hearing grossly normal bilaterally Head and Scalp: atraumatic Eyes EOMs intact bilaterally Neck General: normal visual inspection Chest inspection of chest normal and palpation of chest normal Resp normal respiratory effort Auscultation: clear to auscultation bilaterally Cardio regular rate, regular rhythm, S1 normal heart sound and S2 normal heart sound Jugular Venous Distention: JVD GI normal to inspection, nondistended, normoactive bowel sounds Extremity normal capillary refill and no pedal edema Peripheral Pulses: Yes pulses 2+ throughout and femoral pulses present Skin no rashes or lesions noted Neuro oriented x3 and CN's II-XII intact bilaterally Psych Appearance: grossly normal and appropriate Assessment & Plan Assessment/Plan (1) New onset of congestive heart failure: PLAN: Patient appears to have presented with congestive heart failure. The etiology of the above is unclear but likely secondary to hypertensive heart disease. * Would like to obtain an echocardiogram to assess his ventricular function and depending on the findings further recommendations be made. * In the meantime the patient would be continued on his beta-christiano, diuretics and an ROSALIND inhibitor would be added. Adjustments to these medications will be made in due course. * Risk factor modification and salt restriction have been emphasized. * * Addendum: Cardiac catheterization done today due to the severe cardiomyopathy demonstrated the following: Short left main coronary artery Left anterior descending artery calcified with 50% mid stenosis Left circumflex artery which is nondominant but with no significant stenosis. Dominant large right coronary artery with no significant stenosis. Dilated left ventricle with severe left ventricular systolic dysfunction estimated ejection fraction of 15%. Based on the above angiographic and hemodynamic findings the patient would continue on the medical therapy discussed above. * Thank you for allowing me to participate in the care of your patient. Please don't hesitate to call if any issues arise.
--- NOTE | 2021-08-25 09:59 | CASEMGMT ---
Addendum entered by Bethany Juan 08/25/21 11:06: 1100 Pt just returned from stress test. This RN CM explained JARQUIN form, pt voices understanding, and signs JARUQIN form at this time. Original to chart and copy to pt. Pt provided MCR IP vs OBS booklet as he states he was not provided one in the ED. Pt voices no further questions/concerns/needs. Patricia ANDERSON CM Original Note: This RN CM to room to complete JARQUIN form with pt and pt is out of the dept for testing. Will complete as soon as pt returns. Patricia ANDERSON CM
[2021-08-25] MEDS: Lisinopril 5 MG Tablet PO (11:11)
[2021-08-25] MEDS: Diclofenac 75 MG Tablet PO (11:11)
[2021-08-25] MEDS: Carvedilol 12.5 MG Tablet PO (11:11)
[2021-08-25] MEDS: Furosemide 40 MG/4 ML Vial IV (11:11)
--- NOTE | 2021-08-25 11:13 | STRESSREP ---
Stress Test Report Pharmacal myocardial perfusion stress test. 61-year-old man with a history of shortness of breath. Stress protocol: Resting KG demonstrates sinus rhythm with an incomplete left bundle branch block and a rate of 75 bpm resting blood pressure is 130/94 mmHg. 0.4 mg of regadenoson was infused per usual protocol followed by rapid intravenous saline flush injection continuous EKG monitoring was performed. The maximum heart rate attained was 89 bpm which was 56% of max impact at heart rate the maximum workload was 1 metabolic equivalent. At rest there were no ST or T wave changes noted to suggest abnormal flow reserve and at peak infusion nonspecific ST changes were noted with did not meet the criteria for ischemia. No clinical angina was noted. The peak blood pressure was 142/72 mmHg. Myocardial perfusion protocol. 11.8 mCi of technetium 99m sestamibi was injected at rest. 0.4 mg of regadenoson was infused per usual protocol. At peak infusion 33.6 mCi of technetium 99m sestamibi was injected stress images were obtained stress and rest images were reconstructed and compared in the short axis vertical long and horizontal long axis. Gated images were also obtained Perfusion SPECT analysis: Review of the images demonstrated dilated cardiac silhouette size. The right side was also dilated. There is perfusion noted in all areas of the myocardium except for the inferior wall on the stress images with markedly reduced perfusion. The resting images demonstrate a similar pattern. The above is suggestive of her previous cardiomyopathy with previous inferior infarct cannot be excluded. No obvious ischemia is noted however. Gated SPECT analysis: The gated ejection fraction is 19%. Conclusion: Dilated cardiomyopathy. Previous inferior infarct cannot be excluded. Right ventricular dilatation.
[2021-08-25 11:31] LABS: Bedside Glucose 172 mg/dL (74-106)
--- NOTE | 2021-08-25 11:31 | CASEMGMT ---
According to the [facility] website, the following are in-network tertiary facilities: [facility], [place], [facility], [facility], [facility], and . Patricia ANDERSON CM
--- NOTE | 2021-08-25 11:42 | PCM.PN.HOSP ---
Documented by User: Violeta Bull NP, HIGHWAY SAFETY ENGINEER-C 08/25/21 11:47 Subjective Subjective Patient seen and examined. States shortness of breath is improved, reports dramatic improvement in lower extremity swelling. Denies chest pain. Due to severe cardiomyopathy, patient to undergo heart cath. Objective Data Objective Data Vital Signs: Vital Signs Temp Pulse Resp BP Pulse Ox 98.0 F 77 18 141/92 H 95 08/25/21 11:00 08/25/21 11:00 08/25/21 11:00 08/25/21 11:00 08/25/21 11:00 Oxygen Delivery Method Room Air Weight: 151 lb 9.6 oz Body Mass Index (BMI) 25.7 Intake & Output: Intake and Output for Last 24 Hours 08/23/21 08/24/21 08/25/21 22:59 23:59 23:59 Intake Total Output Total Balance Lab / Micro Data Result Diagrams: 08/24/21 04:49 08/24/21 04:49 Labs: Laboratory Results - last 24 hr 08/24/21 16:07: POC Glucose 141 H 08/24/21 21:21: POC Glucose 161 H 08/25/21 06:31: POC Glucose 127 H 08/25/21 11:21: POC Glucose 172 H Physical Exam Const alert, oriented x3 and no apparent distress Orientation / Consciousness: awake, oriented to person, oriented to place and oriented to time HEENT normocephalic and moist oral mucous membranes Eyes PERRL, EOMs intact bilaterally and conjunctivae normal Neck no lymphadenopathy Resp clear to auscultation bilaterally Auscultation: diminished lung sounds Cardio regular rate, regular rhythm and no murmurs Peripheral Pulses: pulses 2+ throughout GI normal to inspection, nondistended, normoactive bowel sounds, non-tender and non-distended Extremity normal to inspection Skin no rashes or lesions noted Lesions: no lesions Rashes: no rashes Trauma: no lacerations or abrasions Neuro CN's II-XII intact bilaterally, no focal motor deficits, no sensory deficits noted and deep tendon reflexes 2+ bilaterally Psych mental status grossly normal and affect normal Assessment & Plan Assessment/Plan (1) New onset of congestive heart failure: PLAN: 1. Acute heart failure with reduced ejection fraction/dilated cardiomyopathy- BNP 1649. CXR unremarkable. IV Lasix. Strict I&O. Daily weight. Troponin negative. Patient underwent stress test which demonstrated an EF of 19%. Echo read pending. Plan for heart cath. Continue aspirin, statin, carvedilol, lisinopril. Plan for transition to oral Lasix tonight. 2. Elevated blood pressure without known history of hypertension-initiated on carvedilol, lisinopril. Stable. 3. 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 Accu-Cheks with sliding scale insulin. Hemoglobin A1c 6.7%. 4. Tobacco dependence-encouraged cessation. DVT prophylaxis-Lovenox This patient was seen by Violeta Bull NP-C under the supervision of Dr. Butcher. Time spent examining patient, reviewing data and subsequent management of care: 12 Minutes Documented by User: Dr. Jenifer Butcher MD 08/25/21 15:40 Objective Data Lab / Micro Data Result Diagrams: 08/24/21 04:49 08/24/21 04:49 Charges/Coding Addendum Addendum: This patient was seen in conjunction with Violeta Bull NP. I have independently interviewed and examined the patient and reviewed pertinent historical, laboratory, and other data. I have reviewed her note and concur with her documentation 61-year-old male past medical history of type II DM who presented with bilateral leg edema. His admitting BNP was one 649.4. Chest x-ray showed cardiomegaly. Patient was managed as new onset CHF. 2D echo showed an EF of 15%, pulmonary artery systolic pressures of about 45.. Patient was started on IV Lasix. Patient underwent cardiac catheterization that showed nonobstructive coronaries, severe cardiomyopathy He was discharged to continue aspirin, statin, carvedilol, lisinopril, Lasix. Follow-up with cardiology in 2 weeks. On the day of discharge, patient was seen and examined. No new complains. Physical Exam: Gen: Comfortable, not pale, not jaundiced CVS:HS I +II, regular, no murmurs RESP: Diminished at lung bases GI: BS present and normal, soft, nontender, no palpable organs EXT:No edema Time spent coordinating patient's care, discussing with cardiology and nursin minutes Visit Charges Inpatient E&M: 94066 Disch Hosp
[2021-08-25] MEDS: Gabapentin 800 MG Tablet PO (13:52)
--- NOTE | 2021-08-25 14:01 | PCM.DC ---
Discharge Instructions Diet Discharge Diet: Low fat / Low cholesterol, 8 Cup Fluid Restriction and 2000 mg Sodium Diet Activity Discharge Activity: Return to Normal Activity Additional Activity Instructions:: Follow-up post heart cath instructions Dressing / Incision Call your doctor if your incision/area has: Continuous Slow Oozing, Sudden Increased Bleeding, Increased Pain/ Swelling, Increased Redness, Foul Smelling Discharge and Swelling at the incision site Follow Up Care Test Results: Test results from this visit will be discussed in further detail at your follow-up appointment, if applicable. Discharge Plan Admission Admit Date/Time: 08/23/21 22:36 Primary Reason for Your Visit: Heart failure Attending Provider: Jenifer Butcher Primary Care Provider: Care Physician,No Primary Consulting Providers: Woody Maxwell Discharge Orders/Prescriptions Prescriptions: New furosemide 40 mg Tablet 40 mg PO BIDLX 30 Days Qty: 60 RF: 0 carvedilol 12.5 mg Tablet 12.5 mg PO BID 30 Days Qty: 60 RF: 0 aspirin 81 mg Tablet,Chewable 81 mg PO BREAKFAST 30 Days Qty: 30 RF: 0 lisinopril 5 mg Tablet 5 mg PO DAILY 30 Days Qty: 30 RF: 0 atorvastatin 10 mg tablet 10 mg PO QHS Qty: 30 RF: 0 Continued gabapentin 800 mg Tablet 800 mg PO BID RF: 0 metformin 1,000 mg Tablet 1,000 mg PO BID RF: 0 diclofenac sodium 75 mg tablet,delayed release (DR/EC) 75 mg PO BID RF: 0 Referrals / Follow Up: Care Physician,No Primary [Primary Care Provider] - Suzette Friedman, PA [PHYSICIAN PORTAL DEVELOPER] - Within 2 Weeks (or other CLINICAL RESOURCE NURSE/PA based on availability) Disposition Disposition (needs filled in before D/C Order can be placed): Home, Self Care
--- NOTE | 2021-08-25 14:09 | PCM.DC.SUM ---
Documented by User: Violeta Bull NP, [employer] [employer] OPERATOR-C 08/25/21 14:12 Providers Date of Admission: 08/23/21 Date of Discharge: 08/25/21 Primary Care Physician: Tiffany Primary Care Phys Consultations 08/23/21 23:16 Consult: Cardiology Routine Consulting Provider: Woody Maxwell Reason for Consult: CHF exac EMERGENT Consult: No MD Notified: Yes Date Notified: 08/23/21 Time Notified: 22:42 Method of Notification: per ED request Reason For Visit: CHF EXACERBATION Diagnosis Discharge Diagnosis (1) New onset of congestive heart failure: Status: Acute Code(s): I50.9 - Heart failure, unspecified Medications at Discharge Home Medications diclofenac sodium 75 mg PO BID 03/14/21 gabapentin 800 mg PO BID 03/14/21 metformin 1,000 mg PO BID 03/14/21 aspirin 81 mg PO BREAKFAST 30 Days #30 tab 08/25/21 atorvastatin 10 mg PO QHS #30 tab 08/25/21 carvedilol 12.5 mg PO BID 30 Days #60 tab 08/25/21 furosemide 40 mg PO BIDLX 30 Days #60 tab 08/25/21 lisinopril 5 mg PO DAILY 30 Days #30 tab 08/25/21 Hospital Course Operations None Procedures 2-D Echocardiogram, Cardiac catheterization and Nuclear stress test Summary of Care Provided Hospital Course: Patient is a 61-year-old male admitted 08/23/2021 due to shortness of breath. 1. Acute heart failure with reduced ejection fraction/dilated cardiomyopathy- BNP 1649. CXR unremarkable. IV Lasix during admission. Troponin negative. Patient underwent stress test which demonstrated an EF of 19%. Echo with EF 15%, mild mitral valve insufficiency, pulmonary artery systolic pressure 45 mmHg. Underwent heart cath which showed nonobstructive coronary arteries, severe cardiomyopathy. Continue aspirin, statin, carvedilol, lisinopril, Lasix. Follow-up with cardiology in 2 weeks. 2. Elevated blood pressure without known history of hypertension-initiated on carvedilol, lisinopril. Stable. 3. Type 2 diabetes mellitus with chronic neuropathy- Hemoglobin A1c 6.7%. Continue home oral regimen at discharge. 4. Tobacco dependence-encouraged cessation. Physical Exam Const alert, oriented x3 and no apparent distress Orientation / Consciousness: awake, oriented to person, oriented to place and oriented to time HEENT normocephalic and moist oral mucous membranes Eyes PERRL, EOMs intact bilaterally and conjunctivae normal Neck no lymphadenopathy Resp clear to auscultation bilaterally Auscultation: diminished lung sounds Cardio regular rate, regular rhythm and no murmurs Peripheral Pulses: pulses 2+ throughout GI normal to inspection, nondistended, normoactive bowel sounds, non-tender and non-distended Extremity normal to inspection Skin no rashes or lesions noted Lesions: no lesions Rashes: no rashes Trauma: no lacerations or abrasions Neuro CN's II-XII intact bilaterally, no focal motor deficits, no sensory deficits noted and deep tendon reflexes 2+ bilaterally Psych mental status grossly normal and affect normal Patient seen and examined prior to discharge. Physical assessment as noted above. Patient is stable for discharge with follow up recommendations as noted above. This patient was seen by NEISHA Linares under the supervision of Dr. Butcher. Time spent examining patient, reviewing data and subsequent management of care: 15 Minutes Weight / BMI Weight Weight: 151 lb 9.6 oz Body Mass Index (BMI) 25.7 ABG / Lab / Microbiology Data Result Diagrams: 08/24/21 04:49 08/24/21 04:49 Laboratory: Laboratory Results - last 24 hr 08/24/21 16:07: POC Glucose 141 H 08/24/21 21:21: POC Glucose 161 H 08/25/21 06:31: POC Glucose 127 H 08/25/21 11:21: POC Glucose 172 H Radiography Diagnostic Testing: Radiology Impression Echocardiogram 08/24/21 05:55 Interpretation Summary Moderately dilated left ventricle. The estimated ejection fraction is 15 %. There is severe global hypokinesis of the left ventricle. Mild (1+) eccentric mitral valve insufficiency. Pulmonary artery systolic pressure is 45 mmHg. Small pericardial effusion. There are no echocardiographic indications of cardiac tamponade. Ordering Physician: Lidia Collins Referring Physician: Lidia Collins Performed By: Kayla Talamantes RDCS D/C Instructions Discharge Diet: Low fat / Low cholesterol, 8 Cup Fluid Restriction and 2000 mg Sodium Diet Additional Activity Instructions: Follow-up post heart cath instructions Call your doctor if your incision/area has: Continuous Slow Oozing, Sudden Increased Bleeding, Increased Pain/ Swelling, Increased Redness, Foul Smelling Discharge and Swelling at the incision site Meaningful Use Info Meaningful Use Diagnoses (Choose all that apply): CHF CHF ROSALIND/ARB ordered at discharge?: Yes Documented LVEF (%): 15 Discharge Plan Admission Admit Date/Time: 08/23/21 22:36 Primary Reason for Your Visit: Heart failure Attending Provider: Jenifer Butcher Primary Care Provider: Care Physician,No Primary Consulting Providers: Woody Maxwell Discharge Orders/Prescriptions Prescriptions: New furosemide 40 mg Tablet 40 mg PO BIDLX 30 Days Qty: 60 RF: 0 carvedilol 12.5 mg Tablet 12.5 mg PO BID 30 Days Qty: 60 RF: 0 aspirin 81 mg Tablet,Chewable 81 mg PO BREAKFAST 30 Days Qty: 30 RF: 0 lisinopril 5 mg Tablet 5 mg PO DAILY 30 Days Qty: 30 RF: 0 atorvastatin 10 mg tablet 10 mg PO QHS Qty: 30 RF: 0 Continued gabapentin 800 mg Tablet 800 mg PO BID RF: 0 metformin 1,000 mg Tablet 1,000 mg PO BID RF: 0 diclofenac sodium 75 mg tablet,delayed release (DR/EC) 75 mg PO BID RF: 0 Referrals / Follow Up: Care Physician,No Primary [Primary Care Provider] - Suzette Friedman, PA [PHYSICIAN SOFTWARE TEST AUTOMATION ENGINEER] - Within 2 Weeks (or other [employer] OPERATOR/PA based on availability) Disposition Disposition (needs filled in before D/C Order can be placed): Home, Self Care Documented by User: Dr. Jenifer Butcher MD 08/25/21 16:19 Providers Date of Admission: 08/23/21 Reason For Visit: CHF EXACERBATION Medications at Discharge Home Medications diclofenac sodium 75 mg PO BID 03/14/21 gabapentin 800 mg PO BID 03/14/21 metformin 1,000 mg PO BID 03/14/21 aspirin 81 mg PO BREAKFAST 30 Days #30 tab 08/25/21 atorvastatin 10 mg PO QHS #30 tab 08/25/21 carvedilol 12.5 mg PO BID 30 Days #60 tab 08/25/21 furosemide 40 mg PO BIDLX 30 Days #60 tab 08/25/21 lisinopril 5 mg PO DAILY 30 Days #30 tab 08/25/21 ABG / Lab / Microbiology Data Result Diagrams: 08/24/21 04:49 08/24/21 04:49 Discharge Plan Admission Admit Date/Time: 08/23/21 22:36 Primary Reason for Your Visit: Heart failure Attending Provider: Jenifer Butcher Primary Care Provider: Care Physician,No Primary Consulting Providers: Woody Maxwell Discharge Orders/Prescriptions Prescriptions: New furosemide 40 mg Tablet 40 mg PO BIDLX 30 Days Qty: 60 RF: 0 carvedilol 12.5 mg Tablet 12.5 mg PO BID 30 Days Qty: 60 RF: 0 aspirin 81 mg Tablet,Chewable 81 mg PO BREAKFAST 30 Days Qty: 30 RF: 0 lisinopril 5 mg Tablet 5 mg PO DAILY 30 Days Qty: 30 RF: 0 atorvastatin 10 mg tablet 10 mg PO QHS Qty: 30 RF: 0 Continued gabapentin 800 mg Tablet 800 mg PO BID RF: 0 metformin 1,000 mg Tablet 1,000 mg PO BID RF: 0 diclofenac sodium 75 mg tablet,delayed release (DR/EC) 75 mg PO BID RF: 0 Referrals / Follow Up: Care Physician,No Primary [Primary Care Provider] - Suzette Friedman, PA [PHYSICIAN SOFTWARE TEST AUTOMATION ENGINEER] - Within 2 Weeks (or other [place] [employer] OPERATOR/PA based on availability) Disposition Disposition (needs filled in before D/C Order can be placed): Home, Self Care Charges/Coding Addendum Addendum: Addendum: This patient was seen in conjunction with Violeta Bull NP. I have independently interviewed and examined the patient and reviewed pertinent historical, laboratory, and other data. I have reviewed her note and concur with her documentation 61-year-old male past medical history of type II DM who presented with bilateral leg edema. His admitting BNP was one 649.4. Chest x-ray showed cardiomegaly. Patient was managed as new onset CHF. 2D echo showed an EF of 15%, pulmonary artery systolic pressures of about 45.. Patient was started on IV Lasix. Patient underwent cardiac catheterization that showed nonobstructive coronaries, severe cardiomyopathy He was discharged to continue aspirin, statin, carvedilol, lisinopril, Lasix. Follow-up with cardiology in 2 weeks. On the day of discharge, patient was seen and examined. No new complains. Physical Exam: Gen: Comfortable, not pale, not jaundiced CVS:HS I +II, regular, no murmurs RESP: Diminished at lung bases GI: BS present and normal, soft, nontender, no palpable organs EXT:No edema Time spent coordinating patient's care, discussing with cardiology and nursin minutes
--- NOTE | 2021-08-25 17:04 | CL.D_ITS ---
Patient Name: MAR NARAYANAN Study Date: 08/25/2021 Performing: Good Gayle MD Ht: 67 inches 170 cm : 1960 Wt: 152.3 lbs 69 kg Age: 61 Gender: male BSA: 1.8 PROCEDURE(S) PERFORMED [id number]-([id number])LHC/COR/LV CLINICAL PROFILE AND INDICATIONS Indications: Cardiomyopathy Heart Failure: NYHA Class: 3, Newly Diagnosed: Yes, Heart Failure Type: Systolic Stress/Imaging Stress/Image Study Performed: No CAD Presentations: Symptom unlikely to be ischemic. CONCLUSIONS Severe left ventricular systolic dysfunction with moderate disease noted in the left anterior descend ing artery. Cardiomyopathy is out of proportion to the extent of the coronary disease. RECOMMENDATIONS Medical therapy DESCRIPTION OF PROCEDURE The patient arrived to the procedure lab. The risks and benefits of the procedure as well as a full d escription of our services here and current unavailability of surgical backup were fully explained to the patient and/or their significant other prior to the catheterization. The Timeout was completed, verifying the correct patient and procedure. The patient's procedural site was prepped and draped in the usual fashion. Local anesthetic was given subcutaneously to right radial region with Lidocaine 2% . Using a modified Seldinger technique, arterial access was obtained via the right radial artery, a 6 Fr sheath was inserted. Left Coronary Artery selective angiography was performed in multiple views u sing a 5 Fr. 4.0 Elim catheter. Right Coronary Artery selective angiography was then performed in mu ltiple views using a 5 Fr. 4.0 Elim catheter. Left Ventriculography was performed in PHAN projection using a 5 Fr. Pigtail catheter. LV to AO pullback pressures were then recorded.The arterial sheath was pulled and a TR Band was applied for hemostasis. 11cc of air CORONARY ANGIOGRAPHY DOMINANCE: Right Dominant LEFT HEART ASSESSMENT Left Ventricular Ejection Fraction: by LV Gram 15 % Global Hypokinesis - Severe Depressed Left Ventricular systolic function LEFT MAIN: Angiographically normal LEFT ANTERIOR DESCENDING ARTERY: MID LAD: Moderate luminal irregularities up to 50%, Moderate calcification CIRCUMFLEX ARTERY: Mild luminal irregularities RIGHT CORONARY ARTERY: Mild luminal irregularities COMPLICATIONS No Complications PROCEDURE MEDICATIONS Fentanyl 50 mcg IV Versed 1 mg IV Oxygen: 2 L/min via nasal cannula Heparin given IA 08/25/2021 13:17:10 SUMMARY OF HEMODYNAMIC DATA Time AIR REST ECG 12:52:47 Art 175/72 (99) 13:11:15 AO 139/83 (105) SA 13:18:51 LV 126/10, 20 13:25:44 LV 133/10, 20 13:25:50 LV 135/14, 26 13:26:50 LVp 129/9, 19 13:26:55 AOp 137/77 (102) 13:27:00 Signed By Good Gayle MD On 08/25/2021 5:03:57 PM Good Gayle MD
== END 2021-08-25 13:31 | disposition home or self-care (01) ==
LOC: ED 22:37 → PCU 22:50
PROVIDERS: Internal Medicine; Nurse Practitioner Family; Admitting Provider Family Medicine; Emergency Provider Emergency Medicine; Referring Provider Family Medicine; Visit Provider Internal Medicine
DX: I50.21 Acute systolic (congestive) heart failure (principal); I42.0 Dilated cardiomyopathy; E11.40 Type 2 diabetes mellitus with diabetic neuropathy, unspecified; I34.0 Nonrheumatic mitral (valve) insufficiency; M54.9 Dorsalgia, unspecified; Z79.82 Long term (current) use of aspirin; I44.7 Left bundle-branch block, unspecified; G89.29 Other chronic pain; R06.01 Orthopnea; I25.10 Atherosclerotic heart disease of native coronary artery without angina pectoris; F17.290 Nicotine dependence, other tobacco product, uncomplicated; R03.0 Elevated blood-pressure reading, without diagnosis of hypertension
CPT/HCPCS: 71046; 78452; 80048; 80053; 80061; 82962; 83036; 83735; 83880; 84443; 84484; 85025; 93005; 93017; 93306; 93458; 96372; 96374; 96375; 96376; 97802; 99152; 99153; 99218; 99251; 99284; 99406; A9500; J7040; A4216; C1769; C1894; G0378; G0463; J1940; J2405; J2785; Q9967

== ENCOUNTER → 2021-10-20 | Outpatient (CLI) | payer MEDICARE, SELFPAY ==
[2021-10-20 18:03] LABS: Absolute Lymphocyte Count 3.11 X10^3/uL (0.83-4.51); Absolute Neutrophil Count 3.2 X10^3/uL (2.0-7.7); Basophil# 0.03 X10^3/uL; Basophil% 0.4 % (0-1); Eosinophil# 0.15 X10^3/uL; Eosinophils% 2.1 % (0-5); Hematocrit 45.1 % (40-54); Hemoglobin 14.8 g/dL (13.0-16.5); Lymphocyte # 3.11 X10^3/ul (0.83-4.51); Lymphocyte % 43.4 % (19-41); Mean Corp Hgb Conc 32.8 g/dL (32-36); Mean Corpuscular Hgb 29.2 pg (27.0-32.0); Mean Platelet Vol. 10.7 fl (6.2-12.0); Monocyte# 0.71 X10^3/uL; Monocyte% 9.9 % (0-10); NRBC Flagged by Analyzer 0 % (0-5); Neutrophil # 3.15 X10^3/uL (2.7-7.7); Neutrophil % 43.9 % (47-70); Platelet Count 210 K/mm3 (150-450); RBC Distribution Width CV 15.2 % (11.6-14.6); RBC Distribution Width SD 49.4 fl (35.1-43.9); Red Blood Count 5.07 M/mm3 (4.6-6.2); White Blood Count 7.2 K/mm3 (4.4-11.0)
[2021-10-20 18:25] LABS: ALB/GLOB Ratio 0.9 RATIO (0.9-2.4); AST(SGOT) 25 U/L (15-37); Alanine Aminotransfer ALT/SGPT 35 U/L (16-61); Albumin, Serum 3.5 g/dL (3.2-5.0); Alkaline Phosphatase 70 U/L (45-117); Anion Gap 4 (5-15); BUN 17 mg/dL (7-18); BUN/Creat Ratio 19.3 RATIO (10-20); Chloride 105 mmol/L (98-107); Cholesterol 181 mg/dL (200); Creatinine, Serum 0.88 mg/dL (0.70-1.30); EST Glomerular Filtration Rate 93 mL/min (>60); Est Glom Filt Rate - Afr Amer 112 mL/min (>60); Globulin 3.9 g/dL (2.2-4.2); Glucose 127 mg/dL (74-106); High Density Lipoprotein 40 mg/dL; Potassium 4.2 mmol/L (3.5-5.1); Protein, Total 7.4 g/dL (6.4-8.2); Sodium Level 139 mmol/L (136-145); T4 Free Direct 0.86 ng/dL (0.76-1.46); Thyroid Stim Hormone (TSH) 1.74 uIU/mL (0.358-3.74); Triglycerides 295 mg/dL; Very Low Density Lipoprotein 59 mg/dL (5-40)
[2021-10-20 18:38] LABS: Vitamin B12 342 pg/mL (211-911); Vitamin D,25 Hydroxy 19.2 ng/mL
[2021-10-20 19:06] LABS: Hemoglobin A1c 7.3 % (3.8-5.6)
[2021-10-20 23:46] LABS: Microalbumin,Random Urine 14.1 mg/L (NO RANGE EST.); Microalbumin:Creatinine Ratio 19.4 mg/g CRE (<30 mg/g CRE)
== END | disposition home or self-care (01) ==
LOC: MFPLAB 16:02
PROVIDERS: PCP Family Medicine; Visit Provider Family Medicine
DX: E11.9 Type 2 diabetes mellitus without complications (principal); R53.83 Other fatigue; E55.9 Vitamin D deficiency, unspecified
CPT/HCPCS: 36415; 80053; 80061; 82043; 82306; 82570; 82607; 83036; 84439; 84443; 85025

== ENCOUNTER → 2021-11-07 | Outpatient (CLI) | payer MEDICARE, SELFPAY ==
--- NOTE | 2021-11-07 12:47 | ECHOD_ITS ---
Reason For Study: CHF Procedure This was a 2D Doppler, Color Flow transthoracic echocardiogram. Exam performed in department. Left Ventricle Normal LV size. Severe concentric left ventricular hypertrophy. The estimated ejection fraction is 30 %. Stage 1 diastolic dysfunction. There is severe global hypokinesis of the left ventricle. Right Ventricle Normal RV size. Normal systolic function. Atria Normal left atrium. Normal right atrium. Aortic Valve Trisinus/trileaflet aortic valve. Moderate focal aortic valve calcification. Pulmonic Valve Normal pulmonic valve. Great Vessels Normal aortic root. The pulmonary artery is normal size. Normal inferior vena cava. Pericardium/Pleural No pericardial effusion. MMode/2D Measurements & Calculations LVIDd: 5.4 cm IVSd: 1.9 cm LAV(MOD-bp): 43.0 ml LVIDs: 4.6 cm LVPWd: 1.9 cm LAV(MOD-bp) Indexed: 23.8 ml/m2 RVDd: 4.1 cm FS: 16.4 % LAV(MOD-sp2): 55.3 ml LAV(MOD-sp4): 31.7 ml LVAd ap4: 35.0 cm2 LVAd ap2: 50.5 cm2 SV(MOD-sp4): 61.3 ml LVLd ap4: 8.1 cm LVLd ap2: 8.6 cm EDV(MOD-sp4): 129.2 ml EDV(MOD-sp2): 236.1 ml EDV(sp4-el): 128.0 ml EDV(sp2-el): 252.0 ml LVAs ap4: 22.4 cm2 LVAs ap2: 34.0 cm2 LVLs ap4: 6.1 cm LVLs ap2: 7.1 cm ESV(MOD-sp4): 67.9 ml ESV(MOD-sp2): 136.0 ml ESV(sp4-el): 69.6 ml ESV(sp2-el): 139.1 ml EF(MOD-sp4): 47.5 % EF(MOD-sp2): 42.4 % EF(sp4-el): 45.7 % SV(MOD-sp2): 100.1 ml SV(sp4-el): 58.5 ml LA A4 area: 13.2 cm2 LA dimension(2D): 3.3 cm RA A4 area: 17.3 cm2 Doppler Measurements & Calculations MV E max jimbo: 69.6 cm/sec Ao V2 max: 217.2 cm/sec LV V1 max: 133.4 cm/sec MV A max jimbo: 73.9 cm/sec Ao max P.9 mmHg LV V1 max P.1 mmHg MV E/A: 0.94 PA V2 max: 100.2 cm/sec ECHO/Echo Complete Interpretation Summary Normal LV size. Severe concentric left ventricular hypertrophy. The estimated ejection fraction is 30 %. There is severe global hypokinesis of the left ventricle. Stage 1 diastolic dysfunction. Speckling pattern suggestive of amyloid. Ordering Physician: Suzette Friedman Referring Physician: Suzette Friedman Performed By: Ly Saini RCS
== END | disposition home or self-care (01) ==
LOC: CVS 12:45
PROVIDERS: PCP Family Medicine; Referring Provider Physician Assistant Medical; Visit Provider Physician Assistant Medical
DX: R00.1 Bradycardia, unspecified (principal); I42.8 Other cardiomyopathies
CPT/HCPCS: 93225; 93226; 93306

== ENCOUNTER → 2021-12-05 | Outpatient (CLI) | payer MEDICARE, SELFPAY ==
--- NOTE | 2021-12-05 10:20 | RAD_ITS ---
STUDY: X-RAY - PELVIS AND BILATERAL HIPS REASON FOR EXAM: Male, 61 years old. Pain. Osteopenia. TECHNIQUE: AP view of the pelvis.? 2 views of the right hip, and 2 views of the left hip were obtained. COMPARISON: None. FINDINGS: There is a non-specific bowel gas pattern. Vascular calcification. Osteopenia. Normal bilateral iliac wings, sacroiliac joints and visualized sacrum. Normal bilateral superior and inferior pubic rami. Normal pubic symphysis. Normal bilateral ischial tuberosities. Mild arthrosis of both hips. RAD/Hips B/L min 2 views w/ Pelvis IMPRESSION: Osteopenia with mild arthrosis of both hips. No acute abnormality, evidence of erosive changes or fusion. Electronically Signed: Hemal Doyle MD at 13:07 EDT ,
== END | disposition home or self-care (01) ==
PROVIDERS: PCP Family Medicine; Referring Provider Family Medicine; Visit Provider Family Medicine
DX: M25.551 Pain in right hip (principal); M25.552 Pain in left hip
CPT/HCPCS: 73521

== ENCOUNTER → 2021-12-30 | Outpatient (CLI) | payer MEDICARE, SELFPAY ==
--- NOTE | 2021-12-30 15:05 | RAD_ITS ---
EXAM: XR LUMBOSACRAL SPINE, 2 OR 3 VIEWS CLINICAL INDICATION: BACK PAIN TECHNIQUE: Frontal and lateral views of the lumbar spine and sacrum. This report was created using [employer] report generation technology. COMPARISON: None. FINDINGS: VERTEBRAE: Unremarkable. Preserved vertebral body height. No fracture. No spondylolisthesis. Preservation of the normal lumbar lordosis. No significant facet arthropathy. DISC SPACES: Moderate spondylitic changes with vacuum phenomenon L4-L5. VASCULATURE: Dense aortic calcifications. GASTROINTESTINAL TRACT: Unremarkable as visualized. Included bowel gas pattern is non-obstructive. OTHER FINDINGS: Small calcifications overlying the bilateral kidneys. RAD/Lumbar Spine 2 or 3 Views IMPRESSION: 1. Moderate spondylitic changes with vacuum phenomenon L4-L5. 2. Dense aortic calcifications. 3. Small calcifications overlying the bilateral kidneys. Electronically Signed: Jason Gómez MD at 5:04 EDT ,
== END | disposition home or self-care (01) ==
LOC: MTRAD 15:03
PROVIDERS: PCP Family Medicine; Referring Provider Family Medicine; Visit Provider Family Medicine
DX: M47.816 Spondylosis without myelopathy or radiculopathy, lumbar region (principal)
CPT/HCPCS: 72100

== ENCOUNTER 2022-01-07 18:32 | Emergency (ER) | payer MEDICARE, SELFPAY ==
[2022-01-07 18:33] VITALS: BP 100/70; PULSE 92; RESP 16; TEMP 35.9; O2SAT 98; BMI 21.9
--- NOTE | 2022-01-07 18:47 | EX.ED.DYSGE1 ---
HPI History of Present Illness Chief Complaint: General Illness Informant: patient Narrative Narrative: 61 old male presenting to the emergency room stating I do not feel good. He told triage that he had experienced some chest discomfort earlier in the day. When I walked into the room I introduced myself and take a seat. Patient does not look at me or make any response to me I then asked him if he is okay and he says What the hell do you think I am doing here? When I ask him what way he does not feel good he says I do not know. He then tells me that he is weak. I asked him if he is having any other symptomology and he tells me no. I start to go to a review of systems and he starts saying no no no no no no no. I asked him what kind of medical history he has any says I have a bad heart. I asked him if that means that he has had a heart attack and he says no my heart is enlarged. I asked him if he has heart failure and he says well the bottom is not pumping well. I asked him if the symptoms started today and he says no. I have not have to ask him when they started and he states a couple days ago. I asked him if he has spoken with his primary care provider and he says why the hell do you think I am here I have not seen him. I informed the patient that he is being pretty rude and that there are a lot of causes of not feeling good and would be helpful if he could help us to help him. He then stares at me with an aggressive eyes. I informed him that if he does not want her help he is free to leave but if he would like to stay he could help us by assisting in the history of illness and not being rude. He then turns away remained silent and starts batting his eyes. I informed him that batting his eyes and ignoring me is not going to make the problem go away and that has not gone to help me care for him. He then sits up in the bed and walks out of the emergency room stating that his doctor is going to hear about this and we will be hearing from his tierce filler. I informed him that he is leaving on his own choice. Of note the patient was cursing walking back to his room stating how far he had to go but seem to have no problem walking out of the emergency department. [facility] Medical History Acute HFrEF (heart failure with reduced ejection fraction) Cannabis use disorder, mild, abuse Diabetes Elevated BP without diagnosis of hypertension (08/23/21) Non-ischemic cardiomyopathy Nonobstructive atherosclerosis of coronary artery Tobacco use Home Medications metformin 1,000 mg tablet 1,000 mg PO BID 03/14/21 [History Last Taken Unknown] aspirin 81 mg chewable tablet 81 mg PO BREAKFAST 30 days #30 tabs 08/25/21 [Rx Last Taken Unknown] carvedilol 12.5 mg tablet 12.5 mg PO BID #60 tabs 09/26/21 [Rx Last Taken Unknown] nicotine 14 mg/24 hr daily transdermal patch (Nicoderm CQ) 1 patch transdermal DAILY PRN 09/26/21 [History Last Taken Unknown] sacubitril 24 mg-valsartan 26 mg tablet (Entresto) 1 tab PO BID #60 tabs 09/26/21 [Rx Last Taken Unknown] celecoxib 200 mg capsule (Celebrex) 200 mg PO DAILY 10/22/21 [History Last Taken Unknown] cholecalciferol (vitamin D3) 10 mcg (400 unit) capsule 10 mcg PO DAILY 10/22/21 [History Last Taken Unknown] furosemide 40 mg tablet 20 mg PO DAILY #30 tabs 10/22/21 [Rx Last Taken Unknown] gabapentin 800 mg tablet 800 mg PO TID 10/22/21 [History Last Taken Unknown] dapagliflozin 10 mg tablet (Farxiga) 10 mg PO DAILY #30 tabs 10/28/21 [Rx Last Taken Unknown] Allergy/AdvReac Type Severity Reaction Status Date / Time No Known Allergies Allergy Verified 01/07/22 18:36 Family History Father Diabetes Heart disease Hypertension Surgical History History of back surgery History of left heart catheterization (08/25/21) History of tonsillectomy and adenoidectomy Social History household members: significant other Smoking Status: Current every day smoker tobacco type: cigars Smokeless tobacco user: other alcohol intake: current alcohol intake frequency: a few times a month substance use type: marijuana ROS ROS ED ROS Narrative Generalized weakness Constitutional Constitutional ED: Denies chills or weight loss Eyes Eyes: Denies change in vision or diplopia ENT ENT ED: Denies ear pain, rhinorrhea or sore throat Cardiovascular Cardiovascular: Reports chest pain; Denies orthopnea, palpitations or racing heartbeat Respiratory/Chest Respiratory/Chest: Denies cough, dyspnea or orthopnea Gastrointestinal Gastrointestinal: Denies abdominal pain, diarrhea, nausea or vomiting Genitourinary Genitourinary ED: Denies dysuria, hematuria or urinary frequency Musculoskeletal Musculoskeletal: Denies arthralgias or myalgias Integumentary Denies abscess or rash Neurologic Neurologic: Denies headache(s) or weakness Psychiatric Psychiatric: Denies anxiety, depression, suicidal ideation or suicidal thoughts Endocrine Endocrinology: Denies polydipsia, polyphagia or polyuria Allergic/Immunologic Allergic/Immunologic ED: Denies mouth swelling, tongue swelling or urticaria EXAM Physical Exam Const Vital Signs: 01/07/22 18:33 Temperature 96.6 F L Temperature Source Temporal Pulse Rate 92 Respiratory Rate 16 Blood Pressure 100/70 Blood Pressure Mean 80 Pulse Ox 98 Oxygen Delivery Method Room Air Positive well nourished and well developed General Appearance ED: well developed Eyes EOMs intact bilaterally Resp normal respiratory effort Extremity General Extremety ED: Negative for edema General Extremity: Negative for edema Neuro oriented x3 Neuro Narrative: Uses an arm crutch to ambulate Sensorium / Orientation: alert Psych Attitude: agitated MDM MDM MDM Narrative Medical decision making narrative: After attempting to obtain a history and prior to a complete physical exam the patient has chosen on his own accord to get up and leave the emergency department. I did inform him that he is welcome to return at any point should he choose to help us care for him Discharge Plan Triage Chief Complaint: General Illness ED Provider: Navin Tsai Dx/Rx/DC Orders Clinical Impression: Weakness, Non-ischemic cardiomyopathy Prescriptions: No Action nicotine [Nicoderm CQ] 14 mg/24 hr patch 24 hour 1 patch transdermal DAILY PRN carvedilol 12.5 mg tablet 12.5 mg PO BID Qty: 60 11RF Entresto 24-26 mg tablet 1 tab PO BID Qty: 60 11RF celecoxib [Celebrex] 200 mg capsule 200 mg PO DAILY cholecalciferol (vitamin D3) 10 mcg (400 unit) capsule 10 mcg PO DAILY furosemide 40 mg tablet 20 mg PO DAILY Qty: 30 11RF metformin 1,000 mg Tablet 1,000 mg PO BID gabapentin 800 mg tablet 800 mg PO TID aspirin 81 mg Tablet,Chewable 81 mg PO BREAKFAST 30 Days Qty: 30 0RF Farxiga 10 mg tablet 10 mg PO DAILY Qty: 30 11RF Primary Care Provider: Ran Dumont Referrals: Ran Dumont MD [Primary Care Provider] - Disposition Disposition: Elopement
== END 2022-01-07 19:39 | disposition left against medical advice (07) ==
LOC: ED 19:05
PROVIDERS: Emergency Provider Emergency Medicine; PCP Family Medicine; Visit Provider Emergency Medicine
DX: I42.8 Other cardiomyopathies (principal); I50.22 Chronic systolic (congestive) heart failure; E11.9 Type 2 diabetes mellitus without complications; R53.1 Weakness; I25.10 Atherosclerotic heart disease of native coronary artery without angina pectoris; F17.290 Nicotine dependence, other tobacco product, uncomplicated; Z53.29 Procedure and treatment not carried out because of patient's decision for other reasons; Z79.82 Long term (current) use of aspirin; Z79.84 Long term (current) use of oral hypoglycemic drugs; Z79.899 Other long term (current) drug therapy

== ENCOUNTER 2022-01-09 17:27 | Emergency (ER) | payer MEDICARE, SELFPAY ==
[2022-01-09 17:28] VITALS: BP 129/79; PULSE 92; RESP 16; TEMP 36.4; O2SAT 98; BMI 22.4
--- NOTE | 2022-01-09 18:36 | EKG12_ITS ---
Test Reason : CP Blood Pressure : / mmHG Vent. Rate : 079 BPM Atrial Rate : 079 BPM P-R Int : 152 ms QRS Dur : 146 ms QT Int : 412 ms P-R-T Axes : 073 -70 101 degrees QTc Int : 472 ms Normal sinus rhythm Left axis deviation Left ventricular hypertrophy with QRS widening and repolarization abnormality ( R in aVL , Addison pr oduct , Romhilt-Izquierdo ) Abnormal ECG Confirmed by ALEXIS HENRY, CARLOS ([id number]), graphics editor RACHELLE PADILLA ([id number]) on 01/12/2022 11:44:22 AM Referred By: SMOOTH Confirmed By:FRANCO ESPINOZA MD
--- NOTE | 2022-01-09 18:42 | EX.ED.DYSGE1 ---
HPI <NEISHA Willson - Last Filed: 01/09/22 19:33> History of Present Illness Chief Complaint: Abn Labs Narrative Narrative: 61-year-old male with history of diabetes, hypertension, hyperlipidemia presents to the [facility] 3 to 4 days of generalized fatigue, 1 week of chest pain, back pain, nausea and vomiting. Patient states he did see his PCP who told him to come the emergency department for evaluation. Patient states that he has not been taking his diabetic medication as prescribed because he is been so sick. Patient states he smokes cigars every does not drink alcohol or use any other drugs. Patient came here under the assumption that he may come here and be admitted. He states that all of his electrolytes are off. He denies any fevers or chills. PFSH <NEISHA Willson - Last Filed: 01/09/22 19:33> PFSH Medical History Acute HFrEF (heart failure with reduced ejection fraction) Cannabis use disorder, mild, abuse Diabetes Elevated BP without diagnosis of hypertension (08/23/21) Non-ischemic cardiomyopathy Nonobstructive atherosclerosis of coronary artery Tobacco use Home Medications metformin 1,000 mg tablet 1,000 mg PO BID 03/14/21 [History Last Taken Unknown] aspirin 81 mg chewable tablet 81 mg PO BREAKFAST 30 days #30 tabs 08/25/21 [Rx Last Taken Unknown] carvedilol 12.5 mg tablet 12.5 mg PO BID #60 tabs 09/26/21 [Rx Last Taken Unknown] nicotine 14 mg/24 hr daily transdermal patch (Nicoderm CQ) 1 patch transdermal DAILY PRN 09/26/21 [History Last Taken Unknown] sacubitril 24 mg-valsartan 26 mg tablet (Entresto) 1 tab PO BID #60 tabs 09/26/21 [Rx Last Taken Unknown] celecoxib 200 mg capsule (Celebrex) 200 mg PO DAILY 10/22/21 [History Last Taken Unknown] cholecalciferol (vitamin D3) 10 mcg (400 unit) capsule 10 mcg PO DAILY 10/22/21 [History Last Taken Unknown] furosemide 40 mg tablet 20 mg PO DAILY #30 tabs 10/22/21 [Rx Last Taken Unknown] gabapentin 800 mg tablet 800 mg PO TID 10/22/21 [History Last Taken Unknown] dapagliflozin 10 mg tablet (Farxiga) 10 mg PO DAILY #30 tabs 10/28/21 [Rx Last Taken Unknown] Allergy/AdvReac Type Severity Reaction Status Date / Time No Known Allergies Allergy Verified 01/09/22 17:32 Family History Father Diabetes Heart disease Hypertension Surgical History History of back surgery History of left heart catheterization (08/25/21) History of tonsillectomy and adenoidectomy Social History household members: significant other Smoking Status: Current every day smoker tobacco type: cigars Smokeless tobacco user: other alcohol intake: current alcohol intake frequency: a few times a month substance use type: marijuana ROS <NEISHA Willson - Last Filed: 01/09/22 19:33> ROS ED ROS Narrative Constitutional: Negative for fever, chills, weight loss. Positive for weakness Eyes: Negative for vision loss, vision change, double vision ENT: Negative for any sore throat, ear pain, congestion Cardiovascular: Negative for any tightness, palpitations. Positive chest pain Respiratory: Negative for any cough, sputum production, hemoptysis, dyspnea, dyspnea on exertion, orthopnea Gastrointestinal: Negative for any abdominal pain, nausea, vomiting, diarrhea, constipation, blood in stool, blood in vomit : Negative for any urinary frequency, dysuria, retention, blood in urine Muscle skeletal: Negative for any muscle joint pain, stiffness, myalgias, arthralgias, neck pain. Positive for back pain between her shoulder blades Neurological: Negative for any headache, syncope, numbness or tingling, dizziness Skin: Negative for any rashes, lumps, itching, abrasions, lacerations Psychiatric: Negative for any depression, anxiety, stress, suicidal ideation, homicidal ideation Hematologic: Negative for any easy bruising, excessive bruising, easy bleeding Allergies: Negative for any eczema, hives, rash EXAM <NEISHA Willson - Last Filed: 01/09/22 19:33> Physical Exam Narrative Exam Narrative: Vital signs reviewed. HEET: Head normocephalic atraumatic, TMs clear bilaterally. Posterior pharynx is clear, moist mucous membranes. Nares clear bilaterally. Neck: Supple with no lymphadenopathy or tenderness. No signs of meningismus, negative jolt sign. Cardiac: Regular rate and rhythm no murmurs gallops or rubs, equal peripheral pulses bilaterally. Respiratory: Lungs clear to auscultation bilaterally. No chest tenderness. Abdomen: Soft, nontender, nondistended. No abdominal bruit or pulsatile masses. No hepatosplenomegaly Extremities: No peripheral edema, no signs of gross trauma or deformity. Active full range of motion of all extremities. Neuro: Cranial nerves II through XII intact, no focal neurological deficits. Skin: Clean dry and intact with no rash, purpura, petechiae, vesicles or pustules. Backs/flank: No CVA tenderness, no midline spinal tenderness, no deformity. Psych: Normal mood and affect. No SI, HI or acute psychosis. Const Vital Signs: 01/09/22 17:28 01/09/22 20:00 01/09/22 22:20 Temperature 97.6 F L Temperature Source Temporal Pulse Rate 92 71 80 Respiratory Rate 16 15 15 Blood Pressure 129/79 H 154/89 H 140/96 H Blood Pressure Mean 95 110 Pulse Ox 98 97 97 Oxygen Delivery Method Room Air Room Air <Alvin Rodriguez MD - Last Filed: 01/10/22 00:11> Physical Exam Const Vital Signs: 01/09/22 17:28 01/09/22 20:00 01/09/22 22:20 Temperature 97.6 F L Temperature Source Temporal Pulse Rate 92 71 80 Respiratory Rate 16 15 15 Blood Pressure 129/79 H 154/89 H 140/96 H Blood Pressure Mean 95 110 Pulse Ox 98 97 97 Oxygen Delivery Method Room Air Room Air [facility] <NEISHA Willson - Last Filed: 01/09/22 19:33> [facility] Lab Data Labs: Laboratory Results - last 24 hr 01/09/22 01/09/22 01/09/22 19:10 19:10 19:55 WBC 12.6 H RBC 6.13 Hgb 18.7 H* Hct 55.0 H MCV 89.7 MCH 30.5 MCHC 34.0 RDW Std Deviation 46.5 H RDW Coeff of Chalino 14.0 Plt Count 204 MPV 10.0 Immature Gran % (Auto) 0.300 Neut % (Auto) 70.4 H Lymph % (Auto) 22.0 [place] % (Auto) 6.9 Eos % (Auto) 0.2 Baso % (Auto) 0.2 Absolute Neuts (auto) 8.9 H Absolute Lymphs (auto) 2.77 Nucleated RBC % 0 Platelet Estimate ADEQUATE RBC Morphology N CHROM Anisocytosis RARE Macrocytosis RARE Sodium 133 L Potassium 4.4 Chloride 98 Carbon Dioxide 25.0 Anion Gap 10 BUN 33 H Creatinine 0.96 Estim Creat Clear Calc 72.26 Est GFR (MDRD) Af Amer 102 Est GFR (MDRD) Non-Af 84 BUN/Creatinine Ratio 34.4 H Glucose 147 H Calcium 9.7 Total Bilirubin 0.80 AST 37 ALT 35 Alkaline Phosphatase 61 Troponin I High Sens 64 Total Protein 8.2 Albumin 4.2 Globulin 4.0 Albumin/Globulin Ratio 1.0 Lipase 34 L Urine Color Yellow Urine Clarity Clear Urine pH 6.0 Ur Specific [place] 1.020 Urine Protein 15 H Urine Glucose (UA) 1000 H Urine Ketones 150 A* Urine Occult Blood 50 H Urine Nitrite Negative Urine Bilirubin Negative Urine Urobilinogen Normal Ur Leukocyte Esterase Negative Radiography Diagnostic Testing: Clinical Impression(s) from Imaging Studies Chest X-Ray 01/09/22 19:10 IMPRESSION: 1. Mild emphysema. 2. No other evidence of active cardiopulmonary disease. 3. No pneumonia, pneumonitis, bronchitis, or pulmonary mass lesions. 4. No significant interval change since previous study of 01/09/2022. Electronically Signed: Jeff Sellers MD at 20:27 EDT , Treatment and Re-Evaluation Narrative: Patient appears well, patient appears nontoxic, vital signs are stable. Patient presents to the emergency department wanting admission because he says his labs are off. He says that he was sent by his PCP. He is here for weakness, intermittent chest pain, upper back pain that has been going on for 1 week. Patient did have labs drawn today however I am perform my own work-up here. Patient received a cardiac work-up, as well as a chest x-ray and laboratory values. He will be given IV fluids. <Alvin Rodriguez MD - Last Filed: 01/10/22 00:11> [facility] MDM Narrative Medical decision making narrative: Patient complains of continued nausea and vomiting. He had been given 2 doses of Zofran. He will be given Reglan. WBC count slightly elevated 12.6 with hemoglobin hemoconcentrated at 18.7 which has been elevated in the past, hematocrit 55.0. Sodium slightly low 133, potassium normal at 4.4. BUN elevated at 33 with a creatinine of 0.96. He does have mild dehydration. Troponin below normal limit at 64. His urinalysis does show ketones but no evidence of nitrites, I do not feel antibiotics are indicated. At this point in time, I feel he can be discharged safely home with follow-up. His states that Dr. Sapp who saw him today had already called in OFERTALDIA for him. His lipase here is negative. He may need follow-up with gastroenterology. He will start a clear liquid diet and advance as tolerated. I feel he be discharged safely home with follow-up. Return instructions reviewed. Disposition is discharged home in stable condition. I have personally performed a face to face assessment of the patient and have reviewed the SHILPA Note. I performed a substantive portion of the visit including all aspects of the following. My acevedo findings include: History is nausea and vomiting Exam is afebrile. Vital signs noted. Awake, alert. Medical Decision Making check labs. IV fluids. Antiemetics. Discharge. Other additions or changes: [None] Lab Data Attestation: I reviewed the patient's lab results. Labs: Laboratory Results - last 24 hr 01/09/22 01/09/22 01/09/22 19:10 19:10 19:55 WBC 12.6 H RBC 6.13 Hgb 18.7 H* Hct 55.0 H MCV 89.7 MCH 30.5 MCHC 34.0 RDW Std Deviation 46.5 H RDW Coeff of [place] 14.0 Plt Count 204 MPV 10.0 Immature Gran % (Auto) 0.300 Neut % (Auto) 70.4 H Lymph % (Auto) 22.0 [place] % (Auto) 6.9 Eos % (Auto) 0.2 Baso % (Auto) 0.2 Absolute Neuts (auto) 8.9 H Absolute Lymphs (auto) 2.77 Nucleated RBC % 0 Platelet Estimate ADEQUATE RBC Morphology N CHROM Anisocytosis RARE Macrocytosis RARE Sodium 133 L Potassium 4.4 Chloride 98 Carbon Dioxide 25.0 Anion Gap 10 BUN 33 H Creatinine 0.96 Estim Creat Clear Calc 72.26 Est GFR (MDRD) Af Amer 102 Est GFR (MDRD) Non-Af 84 BUN/Creatinine Ratio 34.4 H Glucose 147 H Calcium 9.7 Total Bilirubin 0.80 AST 37 ALT 35 Alkaline Phosphatase 61 Troponin I High Sens 64 Total Protein 8.2 Albumin 4.2 Globulin 4.0 Albumin/Globulin Ratio 1.0 Lipase 34 L Urine Color Yellow Urine Clarity Clear Urine pH 6.0 Ur Specific [place] 1.020 Urine Protein 15 H Urine Glucose (UA) 1000 H Urine Ketones 150 A* Urine Occult Blood 50 H Urine Nitrite Negative Urine Bilirubin Negative Urine Urobilinogen Normal Ur Leukocyte Esterase Negative Radiography Diagnostic Testing: Clinical Impression(s) from Imaging Studies Chest X-Ray 01/09/22 19:10 IMPRESSION: 1. Mild emphysema. 2. No other evidence of active cardiopulmonary disease. 3. No pneumonia, pneumonitis, bronchitis, or pulmonary mass lesions. 4. No significant interval change since previous study of 01/09/2022. Electronically Signed: Jeff Sellers MD at 20:27 EDT , Discharge Plan Triage Chief Complaint: Abn Labs ED Midlevel Provider: Harry Julien ED Provider: Alvin Rodriguez Dx/Rx/DC Orders Clinical Impression: Nausea & vomiting, Weakness, Malaise and fatigue Instructions: Nausea Vomit Control, ED Vomiting (Adult), ED Weakness (Uncertain Cause) Prescriptions: No Action nicotine [Nicoderm CQ] 14 mg/24 hr patch 24 hour 1 patch transdermal DAILY PRN carvedilol 12.5 mg tablet 12.5 mg PO BID Qty: 60 11RF Entresto 24-26 mg tablet 1 tab PO BID Qty: 60 11RF celecoxib [Celebrex] 200 mg capsule 200 mg PO DAILY cholecalciferol (vitamin D3) 10 mcg (400 unit) capsule 10 mcg PO DAILY furosemide 40 mg tablet 20 mg PO DAILY Qty: 30 11RF metformin 1,000 mg Tablet 1,000 mg PO BID gabapentin 800 mg tablet 800 mg PO TID aspirin 81 mg Tablet,Chewable 81 mg PO BREAKFAST 30 Days Qty: 30 0RF Farxiga 10 mg tablet 10 mg PO DAILY Qty: 30 11RF Primary Care Provider: Ran Dumont Referrals: Ran Dumont MD [Primary Care Provider] - 3-5 Days if not improving Disposition Disposition: Home, Self Care Discharge Date/Time: 01/09/22 22:23
[2022-01-09] MEDS: 0.9% Normal Saline 1,000 ML 1000 ML IV (19:05)
--- NOTE | 2022-01-09 19:10 | RAD_ITS ---
STUDY: PORTABLE AP UPRIGHT CHEST X-RAY OF 1907 HOURS ON 01/09/2022 REASON FOR EXAM: 61-year-old male with chest pain. TECHNIQUE: A 2 view portable AP upright chest x-ray was performed per protocol. COMPARISON: 1246 hours on 01/09/2022 FINDINGS: Mild demineralization. Mild osteophytic degenerative changes of the thoracic spine. No cardiomegaly. Mild emphysema. No pulmonary infiltrates, atelectasis, effusion, or pulmonary mass lesions. No pneumonia, pneumonitis or bronchitis. No significant interval change since previous study of 1246 hours on 01/09/2022 RAD/Chest 1 View (Portable) IMPRESSION: 1. Mild emphysema. 2. No other evidence of active cardiopulmonary disease. 3. No pneumonia, pneumonitis, bronchitis, or pulmonary mass lesions. 4. No significant interval change since previous study of 01/09/2022. Electronically Signed: Jeff Sellers MD at 20:27 EDT ,
[2022-01-09] MEDS: Ondansetron 4 MG/2 ML Vial IV ×2 (19:16→20:15)
[2022-01-09 19:31] LABS: Absolute Lymphocyte Count 2.77 X10^3/uL (0.83-4.51); Absolute Neutrophil Count 8.9 X10^3/uL (2.0-7.7); Basophil# 0.02 X10^3/uL; Basophil% 0.2 % (0-1); Eosinophil# 0.03 X10^3/uL; Eosinophils% 0.2 % (0-5); Lymphocyte # 2.77 X10^3/ul (0.83-4.51); Mean Corpuscular Hgb 30.5 pg (27.0-32.0); Mean Corpuscular Volume 89.7 fL (80-94); Monocyte# 0.87 X10^3/uL; Monocyte% 6.9 % (0-10); NRBC Flagged by Analyzer 0 % (0-5); Neutrophil # 8.87 X10^3/uL (2.7-7.7); Neutrophil % 70.4 % (47-70); Platelet Count 204 K/mm3 (150-450); RBC Distribution Width SD 46.5 fl (35.1-43.9); Red Blood Count 6.13 M/mm3 (4.6-6.2); White Blood Count 12.6 K/mm3 (4.4-11.0)
[2022-01-09 19:43] LABS: Differential Indicated SCAN CRITERIA MET; Hemoglobin 18.7 g/dL (13.0-16.5); POSITIVE COUNT NO; POSITIVE DIFFERENTIAL NO; POSITIVE MORPHOLOGY NO
[2022-01-09 19:51] LABS: AST(SGOT) 37 U/L (15-37); Alanine Aminotransfer ALT/SGPT 35 U/L (16-61); Albumin, Serum 4.2 g/dL (3.2-5.0); Alkaline Phosphatase 61 U/L (45-117); Anion Gap 10 (5-15); BUN 33 mg/dL (7-18); BUN/Creat Ratio 34.4 RATIO (10-20); Calcium,Total 9.7 mg/dL (8.5-10.1); Chloride 98 mmol/L (98-107); Creatinine, Serum 0.96 mg/dL (0.70-1.30); EST Glomerular Filtration Rate 84 mL/min (>60); Est Glom Filt Rate - Afr Amer 102 mL/min (>60); Estimated Creatinine Clearance 72.26 ml/min; Glucose 147 mg/dL (74-106); Lipase 34 U/L (73-393); Potassium 4.4 mmol/L (3.5-5.1); Protein, Total 8.2 g/dL (6.4-8.2); Sodium Level 133 mmol/L (136-145); Troponin-I HS 64 pg/mL (3.0-78.0)
[2022-01-09 19:55] LABS: Anisocytosis RARE; Macrocytosis RARE; Platelet Estimate ADEQUATE (ADEQ); Red Cell Morphology N CHROM NORMAL (NORM C&C)
[2022-01-09 20:00] VITALS: BP 154/89; PULSE 71; RESP 15; O2SAT 97
[2022-01-09 20:07] LABS: Color, Urine Yellow (Yellow); Glucose, Dipstick 1000 mg/dl (Normal); Leukocyte Esterase-Dipstick Negative /ul (Negative); Nitrite-Dipstick Negative (Negative); Occult Blood-Urine 50 /ul (Negative); Protein-Dipstick 15 mg/dl (Negative); Urine Bilirubin Dipstick Negative (Negative); Urine Clarity Clear (Clear); Urine Urobilinogen Normal (Normal)
[2022-01-09 21:26] LABS: Ketone-Dipstick 150 mg/dl (Negative)
[2022-01-09] MEDS: Metoclopramide 10 MG/2 ML Vial 5 MG IV (22:17)
[2022-01-09 22:20] VITALS: BP 140/96; PULSE 80; RESP 15; O2SAT 97
[2022-01-12 13:07] LABS: Pathologist Review Reviewed
== END 2022-01-09 22:23 | disposition home or self-care (01) ==
PROVIDERS: Nurse Practitioner; Emergency Provider Emergency Medicine; PCP Family Medicine; Visit Provider Emergency Medicine
DX: R11.2 Nausea with vomiting, unspecified (principal); I11.0 Hypertensive heart disease with heart failure; I50.21 Acute systolic (congestive) heart failure; E11.9 Type 2 diabetes mellitus without complications; R53.1 Weakness; R53.81 Other malaise; R53.83 Other fatigue; I25.10 Atherosclerotic heart disease of native coronary artery without angina pectoris; E78.5 Hyperlipidemia, unspecified; F17.290 Nicotine dependence, other tobacco product, uncomplicated; Z79.82 Long term (current) use of aspirin; Z79.84 Long term (current) use of oral hypoglycemic drugs; Z79.899 Other long term (current) drug therapy
CPT/HCPCS: 36415; 71045; 71046; 80053; 81002; 83690; 84484; 85025; 85652; 87428; 93005; 96361; 96374; 96375; 96376; 99283; A4216; J2405

== ENCOUNTER → 2022-01-09 | Outpatient (CLI) | payer MEDICARE, SELFPAY ==
--- NOTE | 2022-01-09 12:35 | RAD_ITS ---
STUDY: X-RAY CHEST REASON FOR EXAM: Male, 61 years old. Chest pain. TECHNIQUE: Frontal and lateral views of the chest. COMPARISON: 08/23/2021. FINDINGS: Mild hyperinflation. Left pleural tenting. There is no demonstrated pleural abnormality. Normal size heart. Normal mediastinum and mellissa. Normal visualized pulmonary arteries. Normal visualized aortic arch and descending thoracic aorta. Normal visualized thoracic spine. Normal visualized ribs, clavicles, and shoulders. There is no demonstrated abnormality of the visualized soft tissue structures of the upper abdomen. RAD/Chest PA and Lateral IMPRESSION: Hyperinflation with no acute or active cardiopulmonary disease. Electronically Signed: Hemal Doyle MD at 12:28 EDT ,
[2022-01-09 15:12] LABS: Absolute Lymphocyte Count 3.25 X10^3/uL (0.83-4.51); Absolute Neutrophil Count 9.1 X10^3/uL (2.0-7.7); Basophil# 0.03 X10^3/uL; Basophil% 0.2 % (0-1); Eosinophil# 0.06 X10^3/uL; Eosinophils% 0.4 % (0-5); Hematocrit 55.1 % (40-54); Lymphocyte # 3.25 X10^3/ul (0.83-4.51); Lymphocyte % 24.2 % (19-41); Mean Corp Hgb Conc 33.4 g/dL (32-36); Mean Corpuscular Hgb 29.8 pg (27.0-32.0); Mean Corpuscular Volume 89.2 fL (80-94); Monocyte# 0.96 X10^3/uL; Monocyte% 7.2 % (0-10); NRBC Flagged by Analyzer 0 % (0-5); Neutrophil # 9.07 X10^3/uL (2.7-7.7); Neutrophil % 67.6 % (47-70); Platelet Count 237 K/mm3 (150-450); RBC Distribution Width CV 14.2 % (11.6-14.6); RBC Distribution Width SD 45.8 fl (35.1-43.9); Red Blood Count 6.18 M/mm3 (4.6-6.2); White Blood Count 13.4 K/mm3 (4.4-11.0)
[2022-01-09 15:26] LABS: AST(SGOT) 41 U/L (15-37); Alanine Aminotransfer ALT/SGPT 37 U/L (16-61); Albumin, Serum 4.3 g/dL (3.2-5.0); Alkaline Phosphatase 63 U/L (45-117); Anion Gap 8 (5-15); BUN 32 mg/dL (7-18); BUN/Creat Ratio 33.1 RATIO (10-20); Calcium,Total 9.9 mg/dL (8.5-10.1); Chloride 96 mmol/L (98-107); Creatinine, Serum 0.97 mg/dL (0.70-1.30); EST Glomerular Filtration Rate 83 mL/min (>60); Est Glom Filt Rate - Afr Amer 101 mL/min (>60); Globulin 4.3 g/dL (2.2-4.2); Glucose 143 mg/dL (74-106); Potassium 4.6 mmol/L (3.5-5.1); Protein, Total 8.6 g/dL (6.4-8.2); Sodium Level 132 mmol/L (136-145)
[2022-01-09 15:46] LABS: Differential Indicated SCAN CRITERIA MET; Hemoglobin 18.4 g/dL (13.0-16.5); POSITIVE COUNT NO; POSITIVE DIFFERENTIAL NO; POSITIVE MORPHOLOGY NO
[2022-01-09 15:53] LABS: Erythrocyte Sedimentation Rate 33 mm/hr (0-20)
[2022-01-09 16:33] LABS: Anisocytosis RARE; Platelet Estimate ADEQUATE (ADEQ); Red Cell Morphology N CHROM NORMAL (NORM C&C)
[2022-01-12 13:06] LABS: Pathologist Review Reviewed
== END | disposition home or self-care (01) ==
LOC: MTLAB 12:34
PROVIDERS: PCP Family Medicine; Referring Provider Family Medicine; Visit Provider Family Medicine
DX: R07.9 Chest pain, unspecified (principal); G89.29 Other chronic pain; M54.9 Dorsalgia, unspecified; E86.0 Dehydration
CPT/HCPCS: 36415; 71046; 80053; 85025; 85652

== ENCOUNTER 2022-02-03 18:35 | Emergency (ER) | payer MEDICARE, SELFPAY ==
[2022-02-03 18:35] VITALS: BP 162/97; PULSE 96; RESP 16; TEMP 36.4; O2SAT 99; BMI 21.9
--- NOTE | 2022-02-03 19:51 | CT_ITS ---
We are attempting to reach an attending provider to discuss findings. An addendum with communication details will be sent when the communication is complete. INDICATION: Abdominal pain, nausea vomiting, upper lumbar pain EXAMINATION: CT ABDOMEN AND PELVIS WITH CONTRAST - CT Abdomen And Pelvis W/ Contrast Injection TECHNIQUE: Helically acquired images were obtained of the abdomen and pelvis following IV contrast. A radiation dose optimization technique was used for this scan. IV Contrast dosage and agent: 100 mL of [id number]. Oral contrast: None. COMPARISON: No prior abdominal imaging. FINDINGS: LOWER CHEST: 4 mm nodule seen in the right lower lobe, axial image 3 of series 2. Lungs otherwise clear. No cardiomegaly or pericardial effusion. Moderate coronary artery intimal calcifications demonstrated. LIVER: Homogeneous. No focal mass. GALLBLADDER AND BILIARY TREE: Mildly distended gallbladder with homogenous low density within. No wall thickening. No stone. There is intra and extrahepatic biliary ductal dilation. No visible filling defect or extrinsic mass lesion. PANCREAS: No focal cystic or solid mass. SPLEEN: Normal size without focal cystic or solid mass. ADRENAL GLANDS: No nodules. KIDNEYS, URETERS and BLADDER: Normal size and position. There is a 2.7 cm fluid density inferior pole right kidney consistent with a cyst. In the upper pole left kidney there is a 2.3 cm cyst with overlying cortical thinning suggesting scarring. Multiple calcifications are seen in the right and left kidneys. Some of these are vascular associated with abdominal aortic and renal artery atherosclerosis. Bladder is mildly distended. PERITONEUM: No ascites or free air. No other fluid collection. BOWEL: Gastric antral mural edema and mucosal hyperenhancement consistent with gastritis, most likely representing peptic ulcer disease. There is enteric contrast in the colon and distal small bowel. No evidence of appendicitis. LYMPH NODES: No enlarged mesenteric or retroperitoneal lymph nodes. VESSELS: Significant atherosclerosis with irregular soft plaque resulting in at least 25% luminal narrowing of the dominant wall aorta, most notably at and below the level of the renal arteries. Mesenteric vessels show normal opacification. Portal vein is within normal limits. REPRODUCTIVE ORGANS: Normal size prostate gland. ABDOMINAL WALL: No discrete abdominal or pelvic wall hernia. BONES: No lytic or blastic abnormality. CT/Abdomen/Pelvis W IV Cont ONLY IMPRESSION: Gastric antral wall thickening and mucosal hyperenhancement consistent with gastritis, suspicious for peptic ulcer disease. No focal ulceration or perforation exemplified. Mildly distended gallbladder and mild intra and extrahepatic biliary ductal dilation. Common bile duct measures 8 mm. Correlate clinically with laboratory values to assess for obstructive biliary pattern and consider ultrasound for further evaluation. No filling defect or intrinsic mass lesion visible on this exam. Advanced fell aortic atherosclerosis with irregular luminal narrowing, between 25 and 50%, at the level of the renal arteries. Normal opacified mesenteric vasculature. Right and left nonobstructing renal calcifications, some of which appear to represent vascular calcifications. Right and left portal renal cysts with area of cortical thinning overlying left renal cyst. Electronically Signed: Jason Ogden DO at 21:42 EDT ,
--- NOTE | 2022-02-03 19:51 | EKG12_ITS ---
Test Reason : back pain Blood Pressure : / mmHG Vent. Rate : 072 BPM Atrial Rate : 072 BPM P-R Int : 156 ms QRS Dur : 144 ms QT Int : 434 ms P-R-T Axes : 069 -68 099 degrees QTc Int : 475 ms Normal sinus rhythm Left axis deviation Left bundle branch block Abnormal ECG Confirmed by ALEXIS HENRY, CARLOS ([id number]), material expeditor RACHELLE PADILLA ([id number]) on 02/05/2022 1:25:07 PM Referred By: Confirmed By:FRANCO ESPINOZA MD
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
[2022-02-03] MEDS: Morphine 4 MG/ML Syringe IV ×2 (20:04→23:07)
[2022-02-03] MEDS: Ondansetron 4 MG/2 ML Vial IV ×2 (20:04→21:32)
[2022-02-03 20:13] LABS: Absolute Lymphocyte Count 2.43 X10^3/uL (0.83-4.51); Absolute Neutrophil Count 10.4 X10^3/uL (2.0-7.7); Basophil# 0.02 X10^3/uL; Basophil% 0.1 % (0-1); Eosinophil# 0.06 X10^3/uL; Eosinophils% 0.4 % (0-5); Hematocrit 52.8 % (40-54); Lymphocyte # 2.43 X10^3/ul (0.83-4.51); Lymphocyte % 17.6 % (19-41); Mean Corp Hgb Conc 34.5 g/dL (32-36); Mean Corpuscular Hgb 30.6 pg (27.0-32.0); Mean Corpuscular Volume 88.9 fL (80-94); Mean Platelet Vol. 10.5 fl (6.2-12.0); Monocyte% 5.8 % (0-10); NRBC Flagged by Analyzer 0 % (0-5); Neutrophil # 10.44 X10^3/uL (2.7-7.7); Neutrophil % 75.7 % (47-70); Platelet Count 254 K/mm3 (150-450); RBC Distribution Width CV 13.8 % (11.6-14.6); RBC Distribution Width SD 44.9 fl (35.1-43.9); Red Blood Count 5.94 M/mm3 (4.6-6.2); White Blood Count 13.8 K/mm3 (4.4-11.0)
[2022-02-03 20:27] LABS: Hemoglobin 18.2 g/dL (13.0-16.5)
[2022-02-03 20:30] LABS: ALB/GLOB Ratio 0.9 RATIO (0.9-2.4); AST(SGOT) 31 U/L (15-37); Alanine Aminotransfer ALT/SGPT 29 U/L (16-61); Albumin, Serum 3.9 g/dL (3.2-5.0); Alkaline Phosphatase 75 U/L (45-117); Anion Gap 15 (5-15); BUN 20 mg/dL (7-18); BUN/Creat Ratio 22.4 RATIO (10-20); Calcium,Total 9.8 mg/dL (8.5-10.1); Chloride 98 mmol/L (98-107); Creatinine, Serum 0.89 mg/dL (0.70-1.30); EST Glomerular Filtration Rate 91 mL/min (>60); Est Glom Filt Rate - Afr Amer 110 mL/min (>60); Estimated Creatinine Clearance 76.31 ml/min; Globulin 4.4 g/dL (2.2-4.2); Glucose 139 mg/dL (74-106); Lipase 55 U/L (73-393); Potassium 4.6 mmol/L (3.5-5.1); Protein, Total 8.3 g/dL (6.4-8.2); Sodium Level 135 mmol/L (136-145)
[2022-02-03 23:09] VITALS: BP 140/71; PULSE 74; RESP 16; O2SAT 95
== END 2022-02-03 23:22 | disposition home or self-care (01) ==
PROVIDERS: Emergency Provider Emergency Medicine; PCP Family Medicine; Visit Provider Emergency Medicine
DX: M54.9 Dorsalgia, unspecified (principal); I50.22 Chronic systolic (congestive) heart failure; I42.8 Other cardiomyopathies; E11.9 Type 2 diabetes mellitus without complications; R10.9 Unspecified abdominal pain; R11.2 Nausea with vomiting, unspecified; G89.29 Other chronic pain; R03.0 Elevated blood-pressure reading, without diagnosis of hypertension; F17.290 Nicotine dependence, other tobacco product, uncomplicated; Z79.82 Long term (current) use of aspirin; Z79.84 Long term (current) use of oral hypoglycemic drugs; Z79.899 Other long term (current) drug therapy
CPT/HCPCS: 74177; 80053; 83690; 85025; 93005; 96374; 96375; 96376; 99283; J7030; Q9967; A4216; J2405; J3490

== ENCOUNTER → 2022-02-06 | Outpatient (CLI) | payer MEDICARE, SELFPAY ==
--- NOTE | 2022-02-06 10:36 | RAD_ITS ---
HISTORY: PAIN. TECHNIQUE: XR Spine Thoracic 2 Views. COMPARISON: Chest 01/09/2022. FINDINGS: VERTEBRAE: Vertebral body heights maintained. No acute fracture identified. ALIGNMENT: No significant anterior or posterior subluxation. INTERVERTEBRAL DISCS: Mild degenerative endplate changes with osteophytes. SOFT TISSUES: Left paraspinal surgical clips. RAD/Thoracic Spine 2 Views IMPRESSION: No acute fracture or dislocation identified in the thoracic spine. Mild degenerative change. Electronically Signed: Tanya Duarte MD at 13:50 EDT ,
--- NOTE | 2022-02-06 10:36 | RAD_ITS ---
HISTORY: PAIN. TECHNIQUE: Cervical spine 3 views. COMPARISON: None. FINDINGS: VERTEBRAE: Chronic appearing mild anterior wedging of C6. No acute fracture identified. ALIGNMENT: No significant anterior or posterior subluxation. Preservation of the cervical lordosis. INTERVERTEBRAL DISCS: Mild intervertebral disc space narrowing with endplate change and osteophyte at C6-7. SOFT TISSUES: No significant prevertebral soft tissue swelling. Vascular calcifications noted. RAD/Cerv Spine 2 or 3 Views IMPRESSION: Chronic mild anterior wedging of C6 with mild degenerative change of C6/7. Electronically Signed: Tanya Duarte MD at 13:52 EDT ,
== END | disposition home or self-care (01) ==
PROVIDERS: PCP Family Medicine; Referring Provider Family Medicine; Visit Provider Family Medicine
DX: M54.12 Radiculopathy, cervical region (principal)
CPT/HCPCS: 72040; 72070

== ENCOUNTER → 2022-03-06 | Outpatient (CLI) | payer MEDICARE, SELFPAY ==
--- NOTE | 2022-03-06 10:54 | MRI_ITS ---
STUDY: MRI CERVICAL SPINE WITHOUT CONTRAST REASON FOR EXAM: Male, 62 years old. Postsurgical pain. TECHNIQUE: Standardized fat and water weighted pulse sequences were obtained in the sagittal and axial planes. COMPARISON: None FINDINGS: Normal foramen magnum and brainstem-cervical cord junction. Normal craniovertebral junction. Normal anterior atlantoaxial articulation. Normal odontoid process. Normal cervical lordosis. Normal vertebral bodies and posterior osseous elements. C2-3: Normal endplates. Normal disc height, signal and morphology. Normal central canal and intervertebral neural foramina. C3-4: Normal endplates. Normal disc height, signal and morphology. Normal central canal and intervertebral neural foramina. C4-5: Normal endplates. Normal disc height, signal and morphology. Normal central canal and intervertebral neural foramina. C5-6: Normal endplates. Normal disc height, signal and morphology. Normal central canal and intervertebral neural foramina. C6-7: Normal endplates. Minimal disc space height narrowing. Mild ventral extra dural defect due to posterior bone spurs. Normal central canal and intervertebral neural foramina. C7-T1: Normal endplates. Normal disc height, signal and morphology. Normal central canal and intervertebral neural foramina. T1-T2, T2-T3 and T3-T4: (Sagittal only). Normal endplates. Normal disc height, signal and morphology. Normal central canal and intervertebral neural foramina. Normal cervical cord. Normal included upper thoracic spinal cord. Normal included portions of the brainstem and cerebellum. Normal visualized soft tissue structures. MRI/Spine Cervical (Routine) IMPRESSION: 1. No MRI evidence of cervical extruded disc fragment, spinal stenosis or cervical nerve root displacement. 2. Normal cervical spinal cord. Electronically Signed: Alvin Flores MD at 13:10 EDT ,
--- NOTE | 2022-03-06 11:28 | MRI_ITS ---
STUDY: MRI THORACIC SPINE WITHOUT CONTRAST REASON FOR EXAM: Male, 62 years old. Lower thoracic pain. Postsurgical pain. TECHNIQUE: Standardized fat and water weighted pulse sequences were obtained in the sagittal and axial planes. COMPARISON: None. FINDINGS: Normal kyphosis of the thoracic spine. There is no substantial scoliosis. T1-2, T2-3, T3-4, T4-5, T5-6, T6-7, T7-8, T8-9, T9-10, T10-11, T11-12: Tubular structure implant extending from the midline Central T7 vertebral body down to the midline upper central T8 vertebral body. Very slight anterior wedging of the T7 and T8 superior endplates. Normal remaining vertebral body heights. Normal alignment. Normal disc space heights. Minimal ventral extradural defect at T9-T10 disc space level is tiny posterior bulging annulus. No other ventral extradural defect. Normal central canal and bilateral intervertebral neural foramina. Normal visualized thoracic cord. Normal conus medullaris that terminates at the lower L1 vertebral body level. The soft tissue structures are unremarkable. MRI/Spine Thoracic (Routine) IMPRESSION: 1. Tubular implant extending from the midline T7 vertebral body down to the midline posterior T8 vertebral body. Please correlate with operative history. 2. Very slight anterior wedging of the T7 and T8 superior endplates are presumably from remote injury. 3. No MRI evidence of thoracic extruded disc fragment, spinal stenosis or cord compressing lesions. 4. Normal thoracic spinal cord. Electronically Signed: Alvin Flores MD at 13:08 EDT ,
== END | disposition home or self-care (01) ==
PROVIDERS: PCP Family Medicine; Referring Provider Family Medicine; Visit Provider Family Medicine
DX: M54.12 Radiculopathy, cervical region (principal); M51.36 Other intervertebral disc degeneration, lumbar region; G89.18 Other acute postprocedural pain
CPT/HCPCS: 72141; 72146

== ENCOUNTER → 2022-03-20 | Outpatient (CLI) | payer MEDICARE, SELFPAY ==
[2022-03-20 12:11] LABS: Absolute Lymphocyte Count 2.55 X10^3/uL (0.83-4.51); Basophil# 0.02 X10^3/uL; Basophil% 0.2 % (0-1); Eosinophil# 0.15 X10^3/uL; Eosinophils% 1.8 % (0-5); Hemoglobin 14.2 g/dL (13.0-16.5); Lymphocyte # 2.55 X10^3/ul (0.83-4.51); Mean Corp Hgb Conc 32.3 g/dL (32-36); Mean Corpuscular Hgb 30.9 pg (27.0-32.0); Mean Corpuscular Volume 95.7 fL (80-94); Mean Platelet Vol. 11.4 fl (6.2-12.0); Monocyte# 0.71 X10^3/uL; Monocyte% 8.4 % (0-10); NRBC Flagged by Analyzer 0 % (0-5); Neutrophil # 5.03 X10^3/uL (2.7-7.7); Neutrophil % 59.2 % (47-70); Platelet Count 193 K/mm3 (150-450); RBC Distribution Width CV 14.9 % (11.6-14.6); RBC Distribution Width SD 52.7 fl (35.1-43.9); White Blood Count 8.5 K/mm3 (4.4-11.0)
[2022-03-20 12:31] LABS: Vitamin D,25 Hydroxy 31.8 ng/mL
[2022-03-20 12:40] LABS: AST(SGOT) 15 U/L (15-37); Alanine Aminotransfer ALT/SGPT 20 U/L (16-61); Albumin, Serum 3.3 g/dL (3.2-5.0); Alkaline Phosphatase 54 U/L (45-117); Anion Gap 8 (5-15); BUN 13 mg/dL (7-18); BUN/Creat Ratio 20.3 RATIO (10-20); Calcium,Total 8.7 mg/dL (8.5-10.1); Chloride 109 mmol/L (98-107); Cholesterol 99 mg/dL (200); Creatinine, Serum 0.64 mg/dL (0.70-1.30); EST Glomerular Filtration Rate 134 mL/min (>60); Est Glom Filt Rate - Afr Amer 162 mL/min (>60); Globulin 3.4 g/dL (2.2-4.2); Glucose 183 mg/dL (74-106); High Density Lipoprotein 40 mg/dL; Potassium 4.1 mmol/L (3.5-5.1); Protein, Total 6.7 g/dL (6.4-8.2); Sodium Level 144 mmol/L (136-145); Thyroid Stim Hormone (TSH) 1.01 uIU/mL (0.358-3.74); Triglycerides 80 mg/dL; Very Low Density Lipoprotein 16 mg/dL (5-40)
[2022-03-20 14:06] LABS: Hemoglobin A1c 7.1 % (3.8-5.6)
== END | disposition home or self-care (01) ==
LOC: MFPLAB 09:21
PROVIDERS: PCP Family Medicine; Referring Provider Family Medicine; Visit Provider Family Medicine
DX: E11.9 Type 2 diabetes mellitus without complications (principal); E55.9 Vitamin D deficiency, unspecified
CPT/HCPCS: 36415; 80053; 80061; 82306; 83036; 84443; 85025

== ENCOUNTER → 2022-03-30 | Outpatient (CLI) | payer MEDICARE, SELFPAY ==
--- NOTE | 2022-03-30 13:45 | CT_ITS ---
STUDY: CT CHEST WITHOUT CONTRAST- LOW DOSE SCREENING PROTOCOL REASON FOR EXAM: Male, 62 years old. lung nodule, also with thoracic back pain pack per year history. No current symptoms of lung cancer or pulmonary infection. Shared decision-making with referring PCP documented in patient''s record. TECHNIQUE: Low dose screening CT examination performed from the base of the neck to the upper abdomen. Sagittal and coronal reformatted images performed. Sagittal and coronal MIP images provided. The measurements provided are average, rounded measurements per ACR guidelines. Individualized dose optimization techniques were used for this CT. COMPARISON: None. FINDINGS: There is an 8 mm groundglass nodule in the right upper lobe (image 29, series 4). There is also a solid 6 mm pulmonary nodule in the left lower lobe (image 60, series 4). The lungs are otherwise normal. There is no demonstrated pleural abnormality. There is a moderate pericardial effusion. There are calcifications of the coronary arteries. Normal mediastinum. Normal hilar regions. Normal unenhanced pulmonary arteries. There is atherosclerotic calcification of the aortic arch with tortuosity and elongation of the aortic arch and descending thoracic aorta. There are multi-level degenerative changes of the thoracic spine. There is circumferential wall thickening of the mid to distal esophagus. CT/Chest without Contrast IMPRESSION: Groundglass 8 mm nodule in the right upper lobe. Solid 6 mm nodule in the left lower lobe. Circumferential wall thickening of the mid to distal esophagus. Consider EGD if clinically warranted. Moderate pericardial effusion. ASSESSMENT CATEGORY: LUNG-RADS 3: Probably Benign. Recommend follow up with LDCT in 6 months, per established ACR guidelines. Electronically Signed: Pernell Ortez MD at 18:14 EDT ,
== END | disposition home or self-care (01) ==
PROVIDERS: PCP Family Medicine; Referring Provider Family Medicine; Visit Provider Family Medicine
DX: R91.1 Solitary pulmonary nodule (principal)
CPT/HCPCS: 71250

== ENCOUNTER → 2022-04-13 | Outpatient (CLI) | payer MEDICARE, SELFPAY ==
--- NOTE | 2022-04-13 13:53 | ECHOD_ITS ---
Reason For Study: OERICRDIAL EFFUSION Procedure This was a 2D Doppler, Color Flow transthoracic echocardiogram. Exam performed in department. Left Ventricle Normal LV size. Severe concentric left ventricular hypertrophy. The estimated ejection fraction is 40 %. No regional wall motion abnormalities noted. Right Ventricle Normal RV size. Normal systolic function. Atria Normal left atrium. Normal right atrium. Mitral Valve Normal mitral valve. Tricuspid Valve Normal tricuspid valve. Aortic Valve Normal aortic valve. Trisinus/trileaflet aortic valve. Pulmonic Valve Normal pulmonic valve. Great Vessels Normal aortic root. The pulmonary artery is normal size. Normal inferior vena cava. Pericardium/Pleural Trivial pericardial effusion. MMode/2D Measurements & Calculations LVIDd: 5.3 cm IVSd: 1.6 cm LAV(MOD-bp): 43.9 ml LVIDs: 4.6 cm LVPWd: 1.9 cm LAV(MOD-bp) Indexed: 24.9 ml/m2 RVDd: 2.8 cm FS: 13.5 % LAV(MOD-sp2): 44.8 ml LAV(MOD-sp4): 39.9 ml SV(MOD-sp4): 38.5 ml LVAd ap4: 36.1 cm2 LVAd ap2: 29.1 cm2 LVLd ap4: 8.5 cm LVLd ap2: 8.0 cm EDV(MOD-sp4): 128.5 ml EDV(MOD-sp2): 92.3 ml EDV(sp4-el): 130.4 ml EDV(sp2-el): 90.0 ml LVAs ap4: 27.3 cm2 LVAs ap2: 22.7 cm2 LVLs ap4: 7.3 cm LVLs ap2: 7.6 cm ESV(MOD-sp4): 90.0 ml ESV(MOD-sp2): 59.3 ml ESV(sp4-el): 86.8 ml ESV(sp2-el): 57.5 ml EF(MOD-sp4): 30.0 % EF(MOD-sp2): 35.7 % EF(sp4-el): 33.5 % SV(MOD-sp2): 32.9 ml SV(sp4-el): 43.6 ml LA A4 area: 14.7 cm2 LA dimension(2D): 4.0 cm RA A4 area: 14.6 cm2 Time Measurements MV dec time: 0.28 sec Doppler Measurements & Calculations MV E max candido: 45.5 cm/sec Lat Peak E' Candido: 4.5 cm/sec Med Peak E' Candido: 4.4 cm/sec MV A max candido: 73.4 cm/sec E/E' lat: 10.1 E/E' med: 10.3 MV E/A: 0.62 MV dec slope: 174.2 cm/sec2 Ao V2 max: 159.2 cm/sec LV V1 max: 96.0 cm/sec Ao max P.0 mmHg LV V1 max P.7 mmHg Ao V2 mean: 105.1 cm/sec LV V1 mean P.6 mmHg Ao mean P.3 mmHg LV V1 mean: 56.2 cm/sec Ao V2 VTI: 26.4 cm LV V1 VTI: 17.5 cm PA V2 max: 78.7 cm/sec ECHO/Echo Complete Interpretation Summary Normal LV size. Severe concentric left ventricular hypertrophy. The estimated ejection fraction is 40 %. Trivial pericardial effusion. The global longitudinal strain is severely abnormal. The global longitudinal st rain = -9% (abnormal). Ordering Physician: Suzette Friedman Referring Physician: Ran Dumont Performed By: Juliana Hightower, TIMOTHY, RVT
[2022-04-16 02:55] LABS: Albumin 3.9 g/dL (2.9-4.4); Alpha-1-Globulins 0.2 g/dL (0.0-0.4); Alpha-2-Globulins 0.9 g/dL (0.4-1.0); Free Kappa Light Chains 25.8 mg/L (3.3-19.4); Immunoglobulin A 323 mg/dL (61-437); Immunoglobulin G 920 mg/dL (603-1613); Immunoglobulin M 240 mg/dL (20-172); PROEL- TOTAL PROTEIN 7.1 g/dL (6.0-8.5)
[2022-04-16 16:05] LABS: IMMUNOFIXATION RESULT,S Comment: (.)
== END | disposition home or self-care (01) ==
LOC: CVS 13:42
PROVIDERS: PCP Family Medicine; Referring Provider Physician Assistant Medical; Visit Provider Physician Assistant Medical
DX: I50.21 Acute systolic (congestive) heart failure (principal); I42.8 Other cardiomyopathies; I31.39 Other pericardial effusion (noninflammatory)
CPT/HCPCS: 36415; 82784; 83883; 84165; 86334; 93306

== ENCOUNTER → 2022-05-22 | Outpatient (CLI) | payer MEDICARE, SELFPAY ==
--- NOTE | 2022-05-22 10:06 | NM_ITS ---
CLINICAL: 62-year-old male with history of suspected cardiac amyloidosis. 99m Tc PYROPHOSPHATE CARDIAC AMYLOID EXAMINATION COMPARISON: None available FINDINGS: Following the intravenous administration of 21.0 mCi of 99m Tc pyrophosphate, anterior acquisitions of the thorax reveal: 1. There is mild increased tracer concentration defined in the region of the left ventricular myocardium for a Perugini score of 1 and heart to contralateral ratio of 1.35:1. NM/PYP SPECT for Cardiac Amyloid IMPRESSION: 1. NEGATIVE EXAMINATION. There is no scintigraphic evidence of ATTR cardiac amyloidosis on the current evaluation. Electronically Signed: Jimmy Alexander, at 11:08 EST ,
== END | disposition home or self-care (01) ==
LOC: NM 10:04
PROVIDERS: PCP Family Medicine; Visit Provider Physician Assistant Medical
DX: I42.8 Other cardiomyopathies (principal)
CPT/HCPCS: 78803; A9538

== ENCOUNTER → 2022-06-19 | Outpatient (CLI) | payer MEDICARE, SELFPAY ==
[2022-06-19 12:12] LABS: Absolute Neutrophil Count 5.5 X10^3/uL (2.0-7.7); Basophil# 0.03 X10^3/uL; Basophil% 0.3 % (0-1); Eosinophil# 0.17 X10^3/uL; Eosinophils% 1.9 % (0-5); Hematocrit 48.1 % (40-54); Hemoglobin 15.6 g/dL (13.0-16.5); Lymphocyte % 28.9 % (19-41); Mean Corp Hgb Conc 32.4 g/dL (32-36); Mean Corpuscular Hgb 30.4 pg (27.0-32.0); Mean Corpuscular Volume 93.6 fL (80-94); Mean Platelet Vol. 10.4 fl (6.2-12.0); Monocyte# 0.67 X10^3/uL; Monocyte% 7.4 % (0-10); NRBC Flagged by Analyzer 0 % (0-5); Neutrophil % 61.2 % (47-70); Platelet Count 216 K/mm3 (150-450); RBC Distribution Width CV 14.1 % (11.6-14.6); RBC Distribution Width SD 48.8 fl (35.1-43.9); Red Blood Count 5.14 M/mm3 (4.6-6.2)
[2022-06-19 12:43] LABS: Vitamin D,25 Hydroxy 25.6 ng/mL
[2022-06-19 12:45] LABS: ALB/GLOB Ratio 1.1 RATIO (0.9-2.4); AST(SGOT) 16 U/L (15-37); Alanine Aminotransfer ALT/SGPT 22 U/L (16-61); Albumin, Serum 3.7 g/dL (3.2-5.0); Alkaline Phosphatase 55 U/L (45-117); Anion Gap 6 (5-15); BUN 11 mg/dL (7-18); BUN/Creat Ratio 13.4 RATIO (10-20); Calcium,Total 9.6 mg/dL (8.5-10.1); Chloride 105 mmol/L (98-107); Cholesterol 164 mg/dL (200); Creatinine, Serum 0.82 mg/dL (0.70-1.30); EST Glomerular Filtration Rate 100 mL/min (>60); Est Glom Filt Rate - Afr Amer 121 mL/min (>60); Globulin 3.3 g/dL (2.2-4.2); Glucose 155 mg/dL (74-106); High Density Lipoprotein 41 mg/dL; Potassium 4.3 mmol/L (3.5-5.1); Sodium Level 139 mmol/L (136-145); Triglycerides 198 mg/dL; Very Low Density Lipoprotein 40 mg/dL (5-40)
[2022-06-19 13:46] LABS: Hemoglobin A1c 6.3 % (3.8-5.6)
== END | disposition home or self-care (01) ==
PROVIDERS: PCP Family Medicine; Visit Provider Family Medicine
DX: E11.9 Type 2 diabetes mellitus without complications (principal); E55.9 Vitamin D deficiency, unspecified
CPT/HCPCS: 36415; 80053; 80061; 82306; 83036; 85025

== ENCOUNTER → 2022-09-18 | Outpatient (CLI) | payer MEDICARE, SELFPAY ==
[2022-09-18 18:02] LABS: Absolute Lymphocyte Count 2.93 X10^3/uL (0.83-4.51); Absolute Neutrophil Count 3.3 X10^3/uL (2.0-7.7); Basophil# 0.02 X10^3/uL; Basophil% 0.3 % (0-1); Eosinophil# 0.19 X10^3/uL; Eosinophils% 2.7 % (0-5); Hematocrit 47.2 % (40-54); Hemoglobin 15.1 g/dL (13.0-16.5); Lymphocyte # 2.93 X10^3/ul (0.83-4.51); Lymphocyte % 42.2 % (19-41); Mean Corpuscular Hgb 30.1 pg (27.0-32.0); Mean Platelet Vol. 11.2 fl (6.2-12.0); Monocyte# 0.47 X10^3/uL; Monocyte% 6.8 % (0-10); NRBC Flagged by Analyzer 0 % (0-5); Neutrophil # 3.32 X10^3/uL (2.7-7.7); Neutrophil % 47.9 % (47-70); Platelet Count 200 K/mm3 (150-450); RBC Distribution Width SD 51.6 fl (35.1-43.9); Red Blood Count 5.02 M/mm3 (4.6-6.2); White Blood Count 6.9 K/mm3 (4.4-11.0)
[2022-09-18 18:15] LABS: ALB/GLOB Ratio 0.9 RATIO (0.9-2.4); AST(SGOT) 26 U/L (15-37); Alanine Aminotransfer ALT/SGPT 32 U/L (16-61); Albumin, Serum 3.4 g/dL (3.2-5.0); Alkaline Phosphatase 67 U/L (45-117); Anion Gap 6 (5-15); BUN 12 mg/dL (7-18); BUN/Creat Ratio 12.8 RATIO (10-20); Calcium,Total 8.8 mg/dL (8.5-10.1); Chloride 106 mmol/L (98-107); Cholesterol 122 mg/dL (200); Creatinine, Serum 0.93 mg/dL (0.70-1.30); EST Glomerular Filtration Rate 86 mL/min (>60); Est Glom Filt Rate - Afr Amer 105 mL/min (>60); Globulin 3.6 g/dL (2.2-4.2); Glucose 248 mg/dL (74-106); High Density Lipoprotein 37 mg/dL; Potassium 4.1 mmol/L (3.5-5.1); Sodium Level 139 mmol/L (136-145); Triglycerides 319 mg/dL; Very Low Density Lipoprotein 64 mg/dL (5-40)
[2022-09-18 18:17] LABS: Vitamin D,25 Hydroxy 44.8 ng/mL
[2022-09-18 18:20] LABS: Hemoglobin A1c 6.8 % (3.8-5.6)
== END | disposition home or self-care (01) ==
LOC: MFPLAB 14:36
PROVIDERS: PCP Family Medicine; Referring Provider Family Medicine; Visit Provider Family Medicine
DX: E11.9 Type 2 diabetes mellitus without complications (principal); E55.9 Vitamin D deficiency, unspecified
CPT/HCPCS: 36415; 80053; 80061; 82306; 83036; 85025

== ENCOUNTER → 2023-01-15 | Outpatient (CLI) | payer MEDICARE, SELFPAY ==
[2023-01-15 17:20] LABS: Absolute Lymphocyte Count 3.05 X10^3/uL (0.83-4.51); Absolute Neutrophil Count 4.4 X10^3/uL (2.0-7.7); Basophil# 0.03 X10^3/uL; Basophil% 0.4 % (0-1); Eosinophil# 0.18 X10^3/uL; Eosinophils% 2.1 % (0-5); Hemoglobin 14.5 g/dL (13.0-16.5); Lymphocyte # 3.05 X10^3/ul (0.83-4.51); Lymphocyte % 35.9 % (19-41); Mean Corp Hgb Conc 32.2 g/dL (32-36); Mean Corpuscular Hgb 29.6 pg (27.0-32.0); Mean Corpuscular Volume 91.8 fL (80-94); Mean Platelet Vol. 12.2 fl (6.2-12.0); Monocyte# 0.77 X10^3/uL; Monocyte% 9.1 % (0-10); NRBC Flagged by Analyzer 0 % (0-5); Neutrophil # 4.44 X10^3/uL (2.7-7.7); Neutrophil % 52.3 % (47-70); Platelet Count 186 K/mm3 (150-450); RBC Distribution Width CV 13.5 % (11.6-14.6); RBC Distribution Width SD 45.9 fl (35.1-43.9); White Blood Count 8.5 K/mm3 (4.4-11.0)
[2023-01-15 17:51] LABS: Hemoglobin A1c 7.4 % (3.8-5.6)
[2023-01-15 17:53] LABS: Vitamin D,25 Hydroxy 47.4 ng/mL
[2023-01-15 17:56] LABS: AST(SGOT) 18 U/L (15-37); Alanine Aminotransfer ALT/SGPT 24 U/L (16-61); Albumin, Serum 3.6 g/dL (3.2-5.0); Alkaline Phosphatase 51 U/L (45-117); Anion Gap 7 (5-15); BUN 12 mg/dL (7-18); BUN/Creat Ratio 15.8 RATIO (10-20); Calcium,Total 8.8 mg/dL (8.5-10.1); Chloride 105 mmol/L (98-107); Cholesterol 84 mg/dL (200); Creatinine, Serum 0.76 mg/dL (0.70-1.30); EST Glomerular Filtration Rate 110 mL/min (>60); Est Glom Filt Rate - Afr Amer 133 mL/min (>60); Globulin 3.6 g/dL (2.2-4.2); Glucose 102 mg/dL (74-106); High Density Lipoprotein 40 mg/dL; Potassium 4.1 mmol/L (3.5-5.1); Protein, Total 7.2 g/dL (6.4-8.2); Sodium Level 139 mmol/L (136-145); Triglycerides 210 mg/dL; Very Low Density Lipoprotein 42 mg/dL (5-40)
== END | disposition home or self-care (01) ==
LOC: MFPLAB 14:13
PROVIDERS: PCP Family Medicine; Visit Provider Family Medicine
DX: E11.8 Type 2 diabetes mellitus with unspecified complications (principal); E55.9 Vitamin D deficiency, unspecified
CPT/HCPCS: 36415; 80053; 80061; 82306; 83036; 85025

== ENCOUNTER → 2023-03-04 | Outpatient (CLI) | payer MEDICARE, SELFPAY ==
--- NOTE | 2023-03-04 12:45 | ECHOD_ITS ---
Reason For Study: Acute Systolic Heart Failure Procedure This was a 2D Doppler, Color Flow transthoracic echocardiogram. Myocardial strain analysis was performed in this exam to aid in the assessment of cardiac function. Exam performed in department. Left Ventricle Normal LV size. Moderate concentric left ventricular hypertrophy. Left ventricular systolic function is normal. The estimated ejection fraction is 55 %. Stage 1 diastolic dysfunction. No regional wall motion abnormalities noted. Right Ventricle Normal RV size. Normal systolic function. Atria Normal left atrium. Normal right atrium. Mitral Valve Normal mitral valve. Tricuspid Valve Normal tricuspid valve. Mild tricuspid valve insufficiency. Pulmonary artery systolic pressure is 34 mmHg. Aortic Valve Normal aortic valve. Trisinus/trileaflet aortic valve. Pulmonic Valve Normal pulmonic valve. Great Vessels Normal aortic root. The pulmonary artery is normal size. Normal inferior vena cava. Pericardium/Pleural No pericardial effusion. MMode/2D Measurements & Calculations LVIDd: 5.1 cm IVSd: 1.5 cm Ao root diam: 3.3 cm LVIDs: 3.1 cm LVPWd: 1.4 cm LA dimension: 4.1 cm RVDd: 4.3 cm FS: 39.8 % LAV(MOD-bp): 49.1 ml LVAd ap4: 33.9 cm2 SV(MOD-sp4): 68.1 ml LAV(MOD-bp) Indexed: 26.5 ml/m2 LVLd ap4: 8.1 cm LAV(MOD-sp2): 48.5 ml EDV(MOD-sp4): 116.0 ml LAV(MOD-sp4): 46.1 ml EDV(sp4-el): 121.0 ml LVAs ap4: 19.6 cm2 LVLs ap4: 6.8 cm ESV(MOD-sp4): 47.9 ml ESV(sp4-el): 48.2 ml EF(MOD-sp4): 58.7 % EF(sp4-el): 60.2 % SV(sp4-el): 72.8 ml LA A4 area: 16.3 cm2 RA A4 area: 19.0 cm2 TAPSE: 1.7 cm Time Measurements MV dec time: 0.20 sec Doppler Measurements & Calculations MV E max candido: 62.7 cm/sec Lat Peak E' Candido: 8.0 cm/sec Med Peak E' Candido: 5.3 cm/sec MV A max candido: 69.0 cm/sec E/E' lat: 7.8 E/E' med: 11.7 MV E/A: 0.91 MV V2 max: 92.8 cm/sec MV P1/2t max candido: 81.6 cm/sec Ao V2 max: 110.9 cm/sec MV max P.4 mmHg MV P1/2t: 82.5 msec Ao max P.9 mmHg MV V2 mean: 46.0 cm/sec MV dec slope: 289.9 cm/sec2 Ao V2 mean: 68.4 cm/sec MV mean P.0 mmHg Ao mean P.3 mmHg MV V2 VTI: 31.3 cm MVA(P1/2t): 2.7 cm2 Ao V2 VTI: 23.3 cm AV (velocity ratio): 0.80 LV V1 max: 91.0 cm/sec PA V2 max: 87.9 cm/sec TR max candido: 279.2 cm/sec LV V1 max P.3 mmHg PA V2 mean: 60.8 cm/sec TR max P.2 mmHg LV V1 mean P.6 mmHg LV V1 mean: 59.1 cm/sec LV V1 VTI: 18.7 cm ECHO/Echo Complete Interpretation Summary Normal LV size. Moderate concentric left ventricular hypertrophy. Left ventricular systolic function is normal. The estimated ejection fraction is 55 %. Stage 1 diastolic dysfunction. Consider amyloid evaluation The global longitudinal strain is mildly abnormal. The global longitudinal strain = -15% (abnormal). Ordering Physician: Suzette Friedman Referring Physician: Suzette Friedman Performed By: Francisco Javier Tejada RCS
== END | disposition home or self-care (01) ==
LOC: CVS 12:43
PROVIDERS: PCP Family Medicine; Referring Provider Physician Assistant Medical; Visit Provider Physician Assistant Medical
DX: I50.21 Acute systolic (congestive) heart failure (principal); I42.8 Other cardiomyopathies
CPT/HCPCS: 93306

== ENCOUNTER → 2023-05-14 | Outpatient (CLI) | payer MEDICARE, SELFPAY ==
[2023-05-14 15:34] LABS: Absolute Lymphocyte Count 2.81 X10^3/uL (0.83-4.51); Absolute Neutrophil Count 4.4 X10^3/uL (2.0-7.7); Basophil# 0.02 X10^3/uL; Basophil% 0.2 % (0-1); Eosinophil# 0.28 X10^3/uL; Eosinophils% 3.4 % (0-5); Hemoglobin 13.7 g/dL (13.0-16.5); Lymphocyte # 2.81 X10^3/ul (0.83-4.51); Lymphocyte % 34.2 % (19-41); Mean Corp Hgb Conc 31.1 g/dL (32-36); Mean Corpuscular Hgb 29.4 pg (27.0-32.0); Mean Corpuscular Volume 94.4 fL (80-94); Mean Platelet Vol. 11.3 fl (6.2-12.0); Monocyte# 0.69 X10^3/uL; Monocyte% 8.4 % (0-10); NRBC Flagged by Analyzer 0 % (0-5); Neutrophil # 4.39 X10^3/uL (2.7-7.7); Neutrophil % 53.4 % (47-70); Platelet Count 210 K/mm3 (150-450); RBC Distribution Width CV 14.9 % (11.6-14.6); RBC Distribution Width SD 51.9 fl (35.1-43.9); Red Blood Count 4.66 M/mm3 (4.6-6.2); White Blood Count 8.2 K/mm3 (4.4-11.0)
[2023-05-14 15:50] LABS: AST(SGOT) 18 U/L (15-37); Alanine Aminotransfer ALT/SGPT 25 U/L (16-61); Albumin, Serum 3.6 g/dL (3.2-5.0); Alkaline Phosphatase 56 U/L (45-117); Anion Gap 4 (5-15); BUN 12 mg/dL (7-18); BUN/Creat Ratio 14.5 RATIO (10-20); Calcium,Total 8.7 mg/dL (8.5-10.1); Chloride 106 mmol/L (98-107); Cholesterol 116 mg/dL (200); Creatinine, Serum 0.83 mg/dL (0.70-1.30); EST Glomerular Filtration Rate 99 mL/min (>60); Est Glom Filt Rate - Afr Amer 120 mL/min (>60); Globulin 3.6 g/dL (2.2-4.2); Glucose 125 mg/dL (74-106); High Density Lipoprotein 42 mg/dL; Potassium 4.1 mmol/L (3.5-5.1); Protein, Total 7.2 g/dL (6.4-8.2); Sodium Level 141 mmol/L (136-145); Triglycerides 200 mg/dL; Very Low Density Lipoprotein 40 mg/dL (5-40)
[2023-05-14 16:14] LABS: Vitamin D,25 Hydroxy 36.7 ng/mL
[2023-05-14 16:18] LABS: Hemoglobin A1c 6.7 % (3.8-5.6)
== END | disposition home or self-care (01) ==
LOC: MFPLAB 11:38
PROVIDERS: PCP Family Medicine; Visit Provider Family Medicine
DX: E11.8 Type 2 diabetes mellitus with unspecified complications (principal); E55.9 Vitamin D deficiency, unspecified; Z12.5 Encounter for screening for malignant neoplasm of prostate
CPT/HCPCS: 36415; 80053; 80061; 82306; 83036; 84153; 85025; G0103

== ENCOUNTER → 2023-09-17 | Outpatient (CLI) | payer MEDICARE, SELFPAY ==
[2023-09-17 12:16] LABS: Absolute Lymphocyte Count 2.72 X10^3/uL (0.83-4.51); Absolute Neutrophil Count 4.3 X10^3/uL (2.0-7.7); Basophil# 0.03 X10^3/uL; Basophil% 0.4 % (0-1); Eosinophil# 0.22 X10^3/uL; Eosinophils% 2.8 % (0-5); Hematocrit 47.7 % (40-54); Hemoglobin 14.9 g/dL (13.0-16.5); Lymphocyte # 2.72 X10^3/ul (0.83-4.51); Lymphocyte % 34.2 % (19-41); Mean Corp Hgb Conc 31.2 g/dL (32-36); Mean Corpuscular Hgb 28.1 pg (27.0-32.0); Mean Platelet Vol. 10.7 fl (6.2-12.0); Monocyte# 0.68 X10^3/uL; Monocyte% 8.6 % (0-10); NRBC Flagged by Analyzer 0 % (0-5); Neutrophil # 4.28 X10^3/uL (2.7-7.7); Neutrophil % 53.7 % (47-70); Platelet Count 220 K/mm3 (150-450); RBC Distribution Width CV 14.1 % (11.6-14.6); RBC Distribution Width SD 46.5 fl (35.1-43.9)
[2023-09-17 12:32] LABS: Vitamin D,25 Hydroxy 56.4 ng/mL
[2023-09-17 12:44] LABS: ALB/GLOB Ratio 1.1 RATIO (0.9-2.4); AST(SGOT) 16 U/L (15-37); Alanine Aminotransfer ALT/SGPT 17 U/L (16-61); Alkaline Phosphatase 49 U/L (45-117); Anion Gap 2 (5-15); BUN 8 mg/dL (7-18); Calcium,Total 9.4 mg/dL (8.5-10.1); Chloride 105 mmol/L (98-107); Cholesterol 129 mg/dL (200); Creatinine, Serum 0.89 mg/dL (0.70-1.30); EST Glomerular Filtration Rate 91 mL/min (>60); Est Glom Filt Rate - Afr Amer 110 mL/min (>60); Globulin 3.6 g/dL (2.2-4.2); Glucose 138 mg/dL (74-106); High Density Lipoprotein 38 mg/dL; Potassium 4.4 mmol/L (3.5-5.1); Protein, Total 7.6 g/dL (6.4-8.2); Sodium Level 137 mmol/L (136-145); Triglycerides 152 mg/dL; Very Low Density Lipoprotein 30 mg/dL (5-40)
[2023-09-17 12:49] LABS: Microalbumin,Random Urine < 5.0 mg/L (NO RANGE EST.)
[2023-09-17 14:00] LABS: Hemoglobin A1c 7.2 % (3.8-5.6)
== END | disposition home or self-care (01) ==
LOC: MFPLAB 10:51
PROVIDERS: PCP Family Medicine; Visit Provider Family Medicine
DX: E11.8 Type 2 diabetes mellitus with unspecified complications (principal); E55.9 Vitamin D deficiency, unspecified
CPT/HCPCS: 36415; 80053; 80061; 82043; 82306; 82570; 83036; 85025

== ENCOUNTER → 2023-09-29 | Outpatient (CLI) | payer MEDICARE, SELFPAY ==
--- NOTE | 2023-09-29 07:03 | CT_ITS ---
STUDY: CT CHEST WITHOUT CONTRAST REASON FOR EXAM: Male, 63 years old. Lung nodule RADIATION DOSAGE (If Supplied By Facility): CTDIvol = ( 8.38 ) mGy, DLP = ( 283.03 ) mGycm TECHNIQUE: Transaxial imaging was performed without the administration of intravenous contrast material. Multiplanar coronal and sagittal images were reformatted. Individualized dose optimization techniques were used for this CT. COMPARISON: Comparison is made with prior study dated March 30, 2022. FINDINGS: CHEST Stable faint 8 mm groundglass appearing nodule in the medial aspect of the right upper lobe as seen on axial image #28. Stable 6 mm pulmonary nodule in the posteromedial segment of the left lower lobe as seen on axial image #61. There is no demonstrated pleural abnormality. There are calcifications of the coronary arteries. Minimal thickening of the anterior pericardium. There are small lymph nodes within the mediastinum, which are normal in size and morphology most compatible with reactive lymph hyperplasia. Normal hilar regions. Normal unenhanced pulmonary arteries. There is atherosclerotic calcification of the aortic arch and origins of the great vessels of the neck. There are degenerative changes of the thoracic spine. There is circumferential wall thickening of the mid and distal distal esophagus. This is unchanged. Clinical correlation recommended. Mildly dilated gallbladder. Multiple nonobstructive calculi in the upper pole calyces of the left kidney. 1.5 some mucous cyst in the posterior upper pole of the left kidney. CT/Chest without Contrast IMPRESSION: Stable examination. Electronically Signed: Robbie Ortiz MD at 15:27 EDT ,
== END | disposition home or self-care (01) ==
PROVIDERS: PCP Family Medicine; Referring Provider Family Medicine; Visit Provider Family Medicine
DX: R91.1 Solitary pulmonary nodule (principal)
CPT/HCPCS: 71250

== ENCOUNTER → 2024-03-03 | Outpatient (CLI) | payer MEDICARE, SELFPAY ==
[2024-03-03 17:44] LABS: Absolute Lymphocyte Count 2.63 X10^3/uL (0.83-4.51); Absolute Neutrophil Count 4.2 X10^3/uL (2.0-7.7); Basophil# 0.02 X10^3/uL; Basophil% 0.3 % (0-1); Eosinophil# 0.19 X10^3/uL; Eosinophils% 2.5 % (0-5); Hematocrit 40.4 % (40-54); Hemoglobin 12.7 g/dL (13.0-16.5); Lymphocyte # 2.63 X10^3/ul (0.83-4.51); Lymphocyte % 34.5 % (19-41); Mean Corp Hgb Conc 31.4 g/dL (32-36); Mean Corpuscular Hgb 28.5 pg (27.0-32.0); Mean Corpuscular Volume 90.6 fL (80-94); Mean Platelet Vol. 11.1 fl (6.2-12.0); Monocyte# 0.58 X10^3/uL; Monocyte% 7.6 % (0-10); NRBC Flagged by Analyzer 0 % (0-5); Neutrophil # 4.18 X10^3/uL (2.7-7.7); Neutrophil % 54.8 % (47-70); Platelet Count 219 K/mm3 (150-450); RBC Distribution Width CV 13.8 % (11.6-14.6); RBC Distribution Width SD 46.3 fl (35.1-43.9); Red Blood Count 4.46 M/mm3 (4.6-6.2); White Blood Count 7.6 K/mm3 (4.4-11.0)
[2024-03-03 17:57] LABS: ALB/GLOB Ratio 1.1 RATIO (0.9-2.4); AST(SGOT) 20 U/L (15-37); Alanine Aminotransfer ALT/SGPT 24 U/L (16-61); Albumin, Serum 3.6 g/dL (3.2-5.0); Alkaline Phosphatase 48 U/L (45-117); Anion Gap 6 (5-15); BUN 13 mg/dL (7-18); BUN/Creat Ratio 10.5 RATIO (10-20); Calcium,Total 9.3 mg/dL (8.5-10.1); Chloride 106 mmol/L (98-107); Cholesterol 133 mg/dL (200); Creatinine, Serum 1.24 mg/dL (0.70-1.30); EST Glomerular Filtration Rate 62 mL/min (>60); Est Glom Filt Rate - Afr Amer 75 mL/min (>60); Globulin 3.3 g/dL (2.2-4.2); Glucose 201 mg/dL (74-106); High Density Lipoprotein 47 mg/dL; Potassium 3.7 mmol/L (3.5-5.1); Protein, Total 6.9 g/dL (6.4-8.2); Sodium Level 139 mmol/L (136-145); Triglycerides 182 mg/dL; Very Low Density Lipoprotein 36 mg/dL (5-40)
[2024-03-03 18:07] LABS: Hemoglobin A1c 6.9 % (3.8-5.6)
[2024-03-03 18:08] LABS: Vitamin D,25 Hydroxy 42.4 ng/mL
[2024-03-07 09:23] LABS: Ferritin 69 ng/mL (26-388); Iron 69 ug/dL (65-175); Iron Binding Capacity,Total 257 ug/dL (250-450); PERCENT IRON SATURATION 26.8 % (15.0-55.0)
== END | disposition home or self-care (01) ==
LOC: MFPLAB 14:57
PROVIDERS: PCP Family Medicine; Visit Provider Family Medicine
DX: E11.8 Type 2 diabetes mellitus with unspecified complications (principal); E55.9 Vitamin D deficiency, unspecified; D64.9 Anemia, unspecified
CPT/HCPCS: 36415; 80053; 80061; 82306; 82728; 83036; 83540; 83550; 85025

== ENCOUNTER → 2024-06-28 | Outpatient (CLI) | payer MEDICARE, SELFPAY ==
[2024-06-28 17:36] LABS: Absolute Lymphocyte Count 2.93 X10^3/uL (0.83-4.51); Absolute Neutrophil Count 4.4 X10^3/uL (2.0-7.7); Basophil# 0.03 X10^3/uL; Basophil% 0.4 % (0-1); Eosinophils% 3.6 % (0-5); Hematocrit 44.1 % (40-54); Hemoglobin 13.9 g/dL (13.0-16.5); Lymphocyte # 2.93 X10^3/ul (0.83-4.51); Mean Corp Hgb Conc 31.5 g/dL (32-36); Mean Corpuscular Hgb 28.5 pg (27.0-32.0); Mean Corpuscular Volume 90.6 fL (80-94); Mean Platelet Vol. 11.2 fl (6.2-12.0); Monocyte# 0.69 X10^3/uL; Monocyte% 8.2 % (0-10); NRBC Flagged by Analyzer 0 % (0-5); Neutrophil % 52.6 % (47-70); Platelet Count 233 K/mm3 (150-450); RBC Distribution Width CV 13.8 % (11.6-14.6); RBC Distribution Width SD 46.2 fl (35.1-43.9); Red Blood Count 4.87 M/mm3 (4.6-6.2); White Blood Count 8.4 K/mm3 (4.4-11.0)
[2024-06-28 18:58] LABS: ALB/GLOB Ratio 1.1 RATIO (0.9-2.4); AST(SGOT) 20 U/L (15-37); Alanine Aminotransfer ALT/SGPT 27 U/L (16-61); Albumin, Serum 3.8 g/dL (3.2-5.0); Alkaline Phosphatase 52 U/L (45-117); Anion Gap 7 (5-15); BUN 12 mg/dL (7-18); BUN/Creat Ratio 14.1 RATIO (10-20); Calcium,Total 9.1 mg/dL (8.5-10.1); Chloride 106 mmol/L (98-107); Cholesterol 127 mg/dL (200); Creatinine, Serum 0.85 mg/dL (0.70-1.30); EST Glomerular Filtration Rate 95 mL/min (>60); Est Glom Filt Rate - Afr Amer 115 mL/min (>60); Globulin 3.5 g/dL (2.2-4.2); Glucose 133 mg/dL (74-106); High Density Lipoprotein 44 mg/dL; Potassium 4.5 mmol/L (3.5-5.1); Protein, Total 7.3 g/dL (6.4-8.2); Sodium Level 137 mmol/L (136-145); Triglycerides 379 mg/dL; Very Low Density Lipoprotein 76 mg/dL (5-40)
[2024-06-28 19:11] LABS: Hemoglobin A1c 7.3 % (3.8-5.6)
== END | disposition home or self-care (01) ==
PROVIDERS: PCP Family Medicine; Referring Provider Family Medicine; Visit Provider Family Medicine
DX: E11.8 Type 2 diabetes mellitus with unspecified complications (principal); E55.9 Vitamin D deficiency, unspecified
CPT/HCPCS: 36415; 80053; 80061; 82306; 83036; 84443; 85025

== ENCOUNTER 2024-08-11 18:21 | Emergency (ER) | payer MEDICARE, SELFPAY ==
[2024-08-11 18:23] VITALS: BP 156/74; PULSE 68; RESP 18; TEMP 36.7; O2SAT 96
--- NOTE | 2024-08-11 18:28 | EDS_ITS ---
HPI History of Present Illness HPI Narrative: Patient presents with left ankle injury that occurred 4 days ago. Patient slipped on ice and twisted his left ankle. Patient states the pain as a burning sensation. Patient states it is worse with movement and with weightbearing. Patient states it is better with rest. Patient denies any paresthesias or weakness. Patient states the pain radiates up his leg. Patient denies any other injuries. Patient states he has been taking Tylenol and ibuprofen with minimal relief. Chief Complaint: Lower Extremity Injury Informant: patient Occured/Mechanism Comment: Patient slipped on ice and twisted his ankle Onset/Context/Timing Onset: Days (5) Context: Sudden Onset Timing: Continuous Quality of Pain: Burning Location: Left ankle Worsened by: Weightbearing, movement Relieved by: Rest Associated Symptoms Associated Symptoms: Negative for Parasthesia, Weakness or Loss of Funtion PFSH [facility] Medical History Pericardial effusion Abnormal echocardiogram Bradycardia Nonobstructive atherosclerosis of coronary artery Acute HFrEF (heart failure with reduced ejection fraction) Non-ischemic cardiomyopathy Cannabis use disorder, mild, abuse Tobacco use Elevated BP without diagnosis of hypertension (08/23/21) Diabetes Home Medications ?Medication ?Instructions ?Recorded ?Last Taken ?Type metformin 1,000 mg tablet 1,000 mg PO BID 03/14/21 Unk nown History aspirin 81 mg chewable tablet 81 mg PO BREAKFAST 30 da ys #30 tabs 08/25/21 Unknown Rx rosuvastatin 5 mg tablet 5 mg PO DAILY 04/07/22 Unkno wn History cholecalciferol (vitamin D3) 50 50 mcg PO DAILY Unknown History mcg (2,000 unit) capsule furosemide 40 mg tablet 40 mg PO DAILY PRN edema #90 tabs 09/28/22 Unknown Rx losartan 25 mg tablet 25 mg PO DAILY Stopping Entr esto 10/27/23 Unknown Rx #30 tabs carvedilol 25 mg tablet 25 mg PO BID #60 tabs Unknown Rx sildenafil 100 mg tablet 100 mg PO DAILY PRN sexual 0 01/28/24 Unknown Rx activity #30 tabs hydrocodone-acetaminophen 5-325mg 1 tab PO Q6H PRN PRN Pain 3 days 08/11/24 Unknown Rx 5mg-325mg #10 TABLETS Allergy/AdvReac Type Severity Reaction Status Date / Time No Known Allergies Allergy Verified 01/28/24 10:39 Family History Father Diabetes Heart disease Hypertension Surgical History History of left heart catheterization (08/25/21) History of tonsillectomy and adenoidectomy History of back surgery Social History household members: significant other Smoking Status: Current every day smoker tobacco type: cigars Smokeless tobacco user: other alcohol intake: current alcohol intake frequency: a few times a month substance use type: marijuana ROS ROS ED Constitutional Constitutional ED: Denies chills or fever(s) Eyes Eyes: Denies blurry vision or change in vision ENT ENT ED: Denies rhinorrhea or sore throat Cardiovascular Cardiovascular: Denies chest pain or palpitations Respiratory/Chest Respiratory/Chest: Denies cough or dyspnea Gastrointestinal Gastrointestinal: Denies nausea or vomiting Genitourinary Genitourinary ED: Denies dysuria or hematuria Musculoskeletal Musculoskeletal: Reports back pain and neck pain Integumentary Denies abscess or rash Neurologic Neurologic: Reports headache(s); Denies weakness Allergic/Immunologic Allergic/Immunologic ED: Denies mouth swelling or urticaria EXAM Physical Exam Const Vital Signs: 08/11/24 18:23 Temperature 98.1 F Temperature Source Temporal Pulse Rate 68 Respiratory Rate 18 Blood Pressure 156/74 H Blood Pressure Mean 101 Pulse Ox 96 Oxygen Delivery Method Room Air Positive well nourished and well developed General Appearance ED: well developed and NAD HEENT Reports moist mucous membranes normocephalic and atraumatic Extremity Extremity Narrative: There is tenderness, edema, and ecchymosis over the lateral aspect of the left ankle and foot. There is tenderness over the lateral aspect of the left ankle. There is also some mild tenderness over the proximal fibula. There is no tenderness over the fifth metatarsal. Range of motion was limited in all motions of the left ankle secondary to pain. Pedal pulses are equal bilateral. Sensation was intact to light touch in all digits. Capillary refill was less than 2 seconds in all digits. General Extremety ED: Yes weight-bearing difficulty General Extremity: weight-bearing difficulty Neuro oriented x3, CN's II-XII intact bilaterally, moves all extremities and no sensory deficits noted Sensorium / Orientation: alert Motor Exam: strength 5/5 throughout Psych mental status grossly normal MDM MDM MDM Narrative Medical decision making narrative: Differential diagnosis includes fracture, sprain, and contusion. X-rays of the left ankle and left tib-fib will be obtained to assess for fracture. Radiography Diagnostic Testing: Clinical Impression(s) from Imaging Studies Ankle X-Ray 08/11/24 18:50 IMPRESSION: Tiny fracture fragment along the distal anterior tibia with slight anterior tilt and narrowing of the ankle joint as described. Reading Location: [facility] Tibia/Fibula X-Ray 08/11/24 18:50 IMPRESSION: No visible tibial or fibular fracture. See same day ankle radiographs for discussion of subtle left distal tibial fracture. Reading Location: [facility] X-rays of the left ankle were obtained. There are 3 views. On my independent interpretation, there is a tiny avulsion fracture over the anterior distal tibia. There are no other acute fractures noted. Radiologist also interpreted the x-rays and agrees. X-rays of the left tibia and fibula were obtained. There are 2 views. On my independent interpretation, there are no acute fractures noted. Radiologist also interpreted the x-rays and agrees. Treatment and Re-Evaluation Narrative: Patient was given a dose of [place] here. Patient was advised of his findings. Patient was given a walking boot. Patient was given a prescription for a short course of [place]. Patient was instructed to ice and elevate his left ankle. Patient was instructed to follow-up with his primary care physician in 5 to 7 days. Patient understood and was agreeable with the plan. All questions were answered. Discharge Plan Triage Chief Complaint: Lower Extremity Injury ED Provider: Juve Dang Dx/Rx/DC Orders Clinical Impression: Avulsion fracture of bone, Elevated blood pressure reading Instructions: ED Ankle Sprain (Adult) Prescriptions: New hydrocodone-acetaminophen 5-325 mg tablet 1 tab PO Q6H PRN PRN (Reason: Pain) 3 Days Qty: 10 0RF No Action rosuvastatin 5 mg tablet 5 mg PO DAILY cholecalciferol (vitamin D3) 50 mcg (2,000 unit) capsule 50 mcg PO DAILY sildenafil 100 mg tablet 100 mg PO DAILY PRN (Reason: sexual activity) Qty: 30 0RF Rx Instructions: 1/2 to 1 whole tablet; administer 30 minutes to 4 hours before activity carvedilol 25 mg tablet 25 mg PO BID Qty: 60 11RF metformin 1,000 mg Tablet 1,000 mg PO BID aspirin 81 mg Tablet,Chewable 81 mg PO BREAKFAST 30 Days Qty: 30 0RF furosemide 40 mg tablet 40 mg PO DAILY PRN (Reason: edema) Qty: 90 3RF losartan 25 mg tablet 25 mg PO DAILY Qty: 30 11RF Primary Care Provider: Ran Dumont Referrals: Ran Dumont MD [Primary Care Provider] - 5-7 Days Print Language: Yakut Disposition Disposition: Home, Self Care
--- NOTE | 2024-08-11 18:50 | RAD_ITS ---
PROCEDURE: TIBIA FIBULA 2 VIEWS REASON FOR EXAM: 64-year-old male, injury/pain, fell on ice 5 days ago, nonweightbearing, visible swelling and bruising. TECHNIQUE: 2 view(s) of each tibia and fibula COMPARISON: None. FINDINGS: No visible fracture. No suspicious bone lesion. Normal alignment at the knee. Soft tissues are unremarkable. RAD/Tibia & Fibula 2 Views IMPRESSION: No visible tibial or fibular fracture. See same day ankle radiographs for disc ussion of subtle left distal tibial fracture. Reading Location: [id number]
--- NOTE | 2024-08-11 18:50 | RAD_ITS ---
PROCEDURE: ANKLE MIN 3 VIEWS REASON FOR EXAM: 64-year-old male, fell on ice 5 days ago, nonweightbearing, visible swelling and bruising. TECHNIQUE: 3 views of the left ankle COMPARISON: None FINDINGS: Ill-defined lucency along the distal aspect of the anterior tibial articular surface, visualized only on lateral radiograph, with the tiny fracture fragment displaced minimally anteriorly. There is slight anterior tilt of the ankle joint space. No suspicious bone lesion. Otherwise normal alignment. Mild narrowing of the ankle joint space laterally. No effusion. Moderate soft tissue swelling. Diffuse osseous demineralization. Vascular calcifications. RAD/Ankle min 3 Views IMPRESSION: Tiny fracture fragment along the distal anterior tibia with slight anterior til t and narrowing of the ankle joint as described. Reading Location: [id number]
== END 2024-08-11 20:46 | disposition home or self-care (01) ==
PROVIDERS: Emergency Provider Emergency Medicine; PCP Family Medicine; Visit Provider Emergency Medicine
DX: S82.392A Other fracture of lower end of left tibia, initial encounter for closed fracture (principal); E11.9 Type 2 diabetes mellitus without complications; W18.49XA Other slipping, tripping and stumbling without falling, initial encounter; I25.10 Atherosclerotic heart disease of native coronary artery without angina pectoris; R03.0 Elevated blood-pressure reading, without diagnosis of hypertension; F17.290 Nicotine dependence, other tobacco product, uncomplicated; Z79.82 Long term (current) use of aspirin; Z79.84 Long term (current) use of oral hypoglycemic drugs; Z79.899 Other long term (current) drug therapy
CPT/HCPCS: 73590; 73610; 99284

== ENCOUNTER 2024-09-13 13:51 | Outpatient (CLI) | payer OTHER, SELFPAY ==
[2024-09-13 16:05] LABS: Absolute Lymphocyte Count 2.98 X10^3/uL (0.83-4.51); Absolute Neutrophil Count 4.5 X10^3/uL (2.0-7.7); Basophil# 0.04 X10^3/uL; Basophil% 0.5 % (0-1); Eosinophil# 0.31 X10^3/uL; Eosinophils% 3.6 % (0-5); Hematocrit 44.7 % (40-54); Hemoglobin 14.2 g/dL (13.0-16.5); Lymphocyte # 2.98 X10^3/ul (0.83-4.51); Lymphocyte % 34.6 % (19-41); Mean Corp Hgb Conc 31.8 g/dL (32-36); Mean Corpuscular Hgb 28.4 pg (27.0-32.0); Mean Corpuscular Volume 89.4 fL (80-94); Mean Platelet Vol. 10.7 fl (6.2-12.0); Monocyte# 0.74 X10^3/uL; Monocyte% 8.6 % (0-10); NRBC Flagged by Analyzer 0 % (0-5); Neutrophil # 4.51 X10^3/uL (2.7-7.7); Neutrophil % 52.4 % (47-70); Platelet Count 209 K/mm3 (150-450); RBC Distribution Width CV 14.4 % (11.6-14.6); RBC Distribution Width SD 46.5 fl (35.1-43.9); White Blood Count 8.6 K/mm3 (4.4-11.0)
[2024-09-13 17:03] LABS: Cholesterol 150 mg/dL (<=200); High Density Lipoprotein 46 mg/dL; Low Density Lipoprotein Calc. 63 mg/dL; Triglycerides 203 mg/dL; Very Low Density Lipoprotein 41 mg/dL (5-40); Vitamin D,25 Hydroxy 40.9 ng/mL (30-100); cholesterol:hdl ratio screen 3.25
[2024-09-13 18:04] LABS: Albumin, Serum 4.6 g/dL (3.4-4.8); BUN 12 mg/dL (4-19); BUN/Creat Ratio 14.3 RATIO (10-20); Creatinine, Serum 0.87 mg/dL (0.70-1.20); EST Glomerular Filtration Rate 95 (>60); Glucose 74 mg/dL (70-99); Protein, Total 7.6 g/dL (5.9-8.4)
[2024-09-13 18:05] LABS: ALB/GLOB Ratio 1.5 RATIO (0.9-2.4); AST(SGOT) 20 U/L (<=37); Alanine Aminotransfer ALT/SGPT 15 U/L (<=46); Alkaline Phosphatase 56 U/L (40-129); Anion Gap 12 (5-15); Calcium,Total 9.9 mg/dL (7.6-11.0); Carbon Dioxide 27.4 mmol/L (21.0-32.0); Chloride 103 mmol/L (98-108); Globulin 3.1 g/dL (2.2-4.2); Potassium 4.3 mmol/L (3.3-5.1); Sodium Level 142 mmol/L (133-145); Total Bilirubin 0.29 mg/dL (0.00-1.30)
[2024-09-13 19:27] LABS: Hemoglobin A1c 7.5 % (<=5.6)
== END 2024-09-13 23:59 | disposition home or self-care (01) ==
LOC: MFPLAB 13:56
PROVIDERS: PCP Family Medicine; Referring Provider Family Medicine; Visit Provider Family Medicine
DX: E11.8 Type 2 diabetes mellitus with unspecified complications (principal)
CPT/HCPCS: 36415; 80053; 80061; 82306; 83036; 85025

== ENCOUNTER → 2024-09-15 | Outpatient (CLI) | payer OTHER, SELFPAY ==
--- NOTE | 2024-09-15 12:16 | MRI_ITS ---
EXAM: MRI left ankle without IV contrast CLINICAL HISTORY: Pain, trauma COMPARISON: None TECHNIQUE: Multisequence multiplanar MR images of the left ankle were obtained without the administration of intravenous contrast. Imaging sequences were performed to best display suspected pathology. FINDINGS: Mild Achilles tendinopathy without tear. Mild tibialis posterior tendinopathy. Remaining flexor tendons are intact. Mild peroneus longus tendinopathy without tear. Peroneus brevis tendon is intact. Extensor tendons are intact. Anterior and posterior syndesmotic ligaments are intact. Anterior talofibular, calcaneofibular and posterior talofibular ligaments are intact. Deep and superficial deltoid ligaments are intact. Plantar fascia is intact. Subacute appearing nondisplaced fracture of the posterior malleolus with mild surrounding edema. No other fractures or significant marrow edema. Talar dome is intact. Small tibiotalar joint effusion. Alignment is maintained. Mild lateral soft tissue swelling. MRI/Lower Ext Joint Only (Routine) IMPRESSION: 1. Subacute nondisplaced fracture of the posterior malleolus. 2. Mild Achilles, tibialis posterior and peroneus longus tendinopathy without t ear. Reading Location: [facility]
== END | disposition home or self-care (01) ==
LOC: MRI 12:06
PROVIDERS: PCP Family Medicine; Referring Provider Orthopaedic Surgery; Visit Provider Orthopaedic Surgery
DX: S93.432A Sprain of tibiofibular ligament of left ankle, initial encounter (principal); X58.XXXA Exposure to other specified factors, initial encounter
CPT/HCPCS: 73721

== ENCOUNTER 2024-10-02 12:26 | Outpatient (RCR) | payer MEDICARE, SELFPAY ==
--- NOTE | 2024-10-02 13:54 | HP.PTEVAL_ITS ---
Patient's Visit Information Visit Information Visit Information: MAR NARAYANAN is a 64 year old M referred to Physical Therapy by NEISHA Hoff with a diagnosis of Other closed fracture of distal end of left tibia, initial encounter. Date of Evaluation: 10/02/24 Physical Therapist: Jamari Peres, PT, Cert MDT, OCS Visit Plan Frequency: 2x /Week Duration: 4 Weeks Plan: PT EVAL ONLY AND HEP Subjective Subjective: This 64 y/o male presents to physical therapy left fracture of tibia . Patient slipped on ice with immediate pain left ankle b . Patient went to ER x-rays showed subtle left distal tibial fracture Feb . Patient was placed in cam boot with with crutches NWB. Then had MRI showed Subacute nondisplaced fracture of the posterior malleolus. Patient seen Dr Burton 08/16/24 Cont with CAM boot and TTWB LLE. See orthot 09/22/24 placed in ankle brace d/c cam boot and recommended PT . Patient only wants HEP . Initially had edema and ecchymosis . Patient was taking pain medication which patient stopped. Patient has some pain in ankle and mild edema. Patient aggravating factors extended walking and uneven. Denies paresthesia/tingling- Alleviating factors rest, Patient condition affects QOL and function. Goal learn HEP SOCIAL: VOCATION: retired Pain Left Ankle: Pain Intensity (Out of 10): 3 Pain Intensity Range: 10 Objective Objective: POSTURE: normal arch PALAPTION: Lateral malleoli NEURO: denies paresthesia/tingling EDEMA: absent AROM: dorsiflexion 0 ,plantarflexion 60 degrees ,inversion 30 degrees ,inversion 5 degrees MMT: ankle stabilizers 4/5 PROPRIOCEPTION: diminished Goals Goal 1:: Provided HEP for ROM and strengthening Goal Time Frame: 1 visist Rehabilitation Potential Physical Therapy Diagnosis: This patient fx left lower tibia non displaced with decrease ROM and strength/proprioception thus want HEP Rehabilitation Potential: Good Anticipated Interventions Patient/Client Instruction: Educate patient on: Condition and Plan of Care For the Purpose of:: To decrease pain, To increase ROM, To improve muscle performance and motor function, To improve ability to perform ADL's, To improve ability of physical actions for home/community/work/leisure and Other Other: HEP Therapeutic Exercise to Include: Strength training For the Purpose of:: To improve ability of physical actions for home/community/work/leisure Text: Thank you for the opportunity to evaluate your patient. For Medicare and Medicare HMO plans, please review the plan of care and approve it. It will need to be FAXED BACK to us at [phone] for Medicare purposes. For Medicare only, by signing this I certify the plan of care. Please let me know if there are questions or concerns regarding this plan of care. Physician Signature: Date:___
== END 2024-10-02 15:00 | disposition home or self-care (01) ==
LOC: PT 12:26
PROVIDERS: PCP Family Medicine; Referring Provider Nurse Practitioner Family; Visit Provider Nurse Practitioner Family
DX: S93.432D Sprain of tibiofibular ligament of left ankle, subsequent encounter (principal); S82.392D Other fracture of lower end of left tibia, subsequent encounter for closed fracture with routine healing
CPT/HCPCS: 97110; 97162

== ENCOUNTER → 2024-10-20 | Outpatient (CLI) | payer MEDICARE, SELFPAY ==
--- NOTE | 2024-10-20 16:06 | CT_ITS ---
PROCEDURE: LOW DOSE CT LUNG SCREENING 10/20/2024 REASON FOR EXAM: HISTORY OF TOBACCO USE Former smoker. TECHNIQUE: Low Dose CT Lung screening without contrast. Coronal and Sagittal reconstruction series were provided. One or more dose reduction techniques were used (e.g., Automated exposure control, adjustment of the mA and/or kV according to patient size, use of iterative reconstruction technique). REFERENCE LINK: [employer] Interactive Lung-RADS RADIATION DOSE SUMMARY: CTDlvol: 2.39 mGy DLP: 75.94 mGycm COMPARISON: Prior CT scan of the thorax dated September 29, 2023. FINDINGS: PULMONARY NODULES: (Only nodules >3mm are reported) Nodules described below are on series 1 unless otherwise specified. Pulmonary Nodules: Stable 8 mm ground-glass appearing nodule in the medial aspect of the right upper lobe as seen on axial image number 51. Stable 6 mm nodule in the posterior medial segment of the left lower lobe as seen on axial image number 114 Hardware:None Lymph Nodes:Small mediastinal lymph nodes. Heart and Vasculature:Coronary artery calcifications are noted.Atherosclerotic calcifications of the thoracic aorta. Thoracic aorta and pulmonary arteries have normal contours; noncontrast technique limits evaluation. Coronary Artery Calcifications: Present Lungs and Airways: Mild emphysematous changes are present. Pleura:Unremarkable Upper Abdomen:Once again, there is evidence of circumferential wall thickening of the mid and distal portions of the esophagus. Clinical correlation recommended. Bones:Degenerative changes of the thoracic spine. CT/Low Dose CT Lung Screening IMPRESSION: Stable examination. Coronary artery calcification (CAC) is is present Lung-RADS Category: 2 BENIGN (BASED ON IMAGING FEATURES OR INDOLENT BEHAVIOR). RECOMMEND 12-MONTH SCREENING LDCT. Other Significant Findings: None. Reading Location: [id number]
== END | disposition home or self-care (01) ==
LOC: CT 16:06
PROVIDERS: PCP Family Medicine; Referring Provider Family Medicine; Visit Provider Family Medicine
DX: Z12.2 Encounter for screening for malignant neoplasm of respiratory organs (principal); Z87.891 Personal history of nicotine dependence
CPT/HCPCS: 71271

== ENCOUNTER → 2025-03-29 | Outpatient (CLI) | payer MEDICARE, SELFPAY ==
[2025-03-29 17:57] LABS: Hematocrit 38.9 % (40-54); Hemoglobin 12.7 g/dL (13.0-16.5); Immature Granulocytes Count 0.020 X10^3/uL (0.0-0.0); Mean Corp Hgb Conc 32.6 g/dL (32-36); Mean Corpuscular Volume 89.2 fL (80-94); Mean Platelet Vol. 11.0 fl (6.2-12.0); NRBC Flagged by Analyzer 0 % (0-5); Platelet Count 245 K/mm3 (150-450); RBC Distribution Width CV 13.6 % (11.6-14.6); RBC Distribution Width SD 44.7 fl (35.1-43.9); Red Blood Count 4.36 M/mm3 (4.6-6.2); White Blood Count 8.2 K/mm3 (4.4-11.0)
[2025-03-29 18:45] LABS: AST(SGOT) 18 U/L (<=37); Alanine Aminotransfer ALT/SGPT 11 U/L (<=46); Albumin, Serum 4.1 g/dL (3.4-4.8); Alkaline Phosphatase 41 U/L (40-129); Anion Gap 11 (5-15); BUN 10 mg/dL (4-19); BUN/Creat Ratio 11.3 RATIO (10-20); Calcium,Total 9.5 mg/dL (7.6-11.0); Carbon Dioxide 24.7 mmol/L (21.0-32.0); Chloride 104 mmol/L (98-108); Cholesterol 136 mg/dL (<=200); Globulin 2.6 g/dL (2.2-4.2); Glucose 127 mg/dL (70-99); Low Density Lipoprotein Calc. 48 mg/dL; Potassium 3.8 mmol/L (3.3-5.1); Triglycerides 241 mg/dL; Very Low Density Lipoprotein 48 mg/dL (5-40); Vitamin D,25 Hydroxy 40.8 ng/mL (30-100); cholesterol:hdl ratio screen 3.43
== END | disposition home or self-care (01) ==
LOC: MFPLAB 14:51
PROVIDERS: PCP Family Medicine; Visit Provider Family Medicine
DX: E11.8 Type 2 diabetes mellitus with unspecified complications (principal); E55.9 Vitamin D deficiency, unspecified
CPT/HCPCS: 36415; 80053; 80061; 82306; 83036; 85025